=== PATIENT | female | born 1935 | race Caucasian/White ===

== ENCOUNTER 2017-05-08 12:05 | Emergency (ER) | payer MEDICARE, OTHER ==
--- NOTE | 2017-05-08 12:24 | ER Document Report ---
ED Medical Screen (RME) - General Chief Complaint: Chest Pain Stated Complaint: CHEST PAIN Time Seen by Provider: 05/08/17 12:12 Mode of Arrival: Wheelchair Information source: Patient TRAVEL OUTSIDE OF THE [place] IN LAST 30 DAYS: No - HPI Patient complains to provider of: Chest pain Onset: Yesterday Notes: 05/08/17 12:24 Patient is an 82-year-old female who presents to the emergency room complaining of pressure to the midsternal area since yesterday evening, she states she is just not been feeling well, has a history of right shoulder problems and recently received a steroid injection around the , she denies any shortness of breath - Related Data Allergies/Adverse Reactions: meperidine HCl [From Demerol] Allergy (Severe, Verified 05/08/17 12:19) propoxyphene HCl [From Darvon] Allergy (Mild, Verified 05/08/17 12:19) oxycodone HCl [From OxyContin] Allergy (Verified 05/08/17 12:19) Past Medical History - Past Medical History Cardiac Medical History: Reports: Hx Hypercholesterolemia, Hx Hypertension Renal/ Medical History: Denies: Hx Peritoneal Dialysis GI Medical History: Reports: Hx Gastroesophageal Reflux Disease Past Surgical History: Reports: Hx Hysterectomy, Hx Orthopedic Surgery - back surgery, foot surgery - Immunizations Hx Diphtheria, Pertussis, Tetanus Vaccination: Yes Physical Exam - Vital signs Vitals: Temp Pulse Resp BP Pulse Ox 98.8 F 93 18 142/78 H 100 05/08/17 12:17 05/08/17 12:17 05/08/17 12:17 05/08/17 12:17 05/08/17 12:17 Course - Vital Signs Vital signs: Temp Pulse Resp BP Pulse Ox 98.8 F 93 18 142/78 H 100 05/08/17 12:17 05/08/17 12:17 05/08/17 12:17 05/08/17 12:17 05/08/17 12:17
[2017-05-08 12:54] LABS: ABSOLUTE LYMPHOCYTES (AUTO) 1.3 10^3/uL (0.5-4.7); ABSOLUTE MONOCYTES (AUTO) 0.6 10^3/uL (0.1-1.4); ABSOLUTE NEUT (AUTO) 4.7 10^3/uL (1.7-8.2); BASOPHILS % (AUTO) 0.7 % (0-2); EOSINOPHILS % (AUTO) 0.7 % (0-6); HEMATOCRIT 42.2 % (36.0-47.0); HEMOGLOBIN 14.1 g/dL (12.0-15.5); HGB HCT DIFFERENCE 0.1; LYMPHOCYTES % (AUTO) 19.2 % (13-45); MEAN CORPUSCULAR HEMOGLOBIN 27.8 pg (27.0-33.4); MEAN CORPUSCULAR HGB CONC 33.4 g/dL (32.0-36.0); MEAN CORPUSCULAR VOLUME 83 fl (80-97); MONOCYTES % (AUTO) 8.4 % (3-13); RED BLOOD COUNT 5.08 10^6/uL (3.72-5.28); RED CELL DISTRIBUTION WIDTH 15.4 % (11.5-14.0); WHITE BLOOD COUNT 6.6 10^3/uL (4.0-10.5)
--- NOTE | 2017-05-08 13:04 | RADIOLOGY REPORT (SQ) ---
EXAM DESCRIPTION: CHEST PA/LAT COMPLETED DATE/TIME: 05/08/2017 12:51 pm REASON FOR STUDY: cp COMPARISON: 11/18/2015 EXAM PARAMETERS: NUMBER OF VIEWS: two views TECHNIQUE: Digital Frontal and Lateral radiographic views of the chest acquired. RADIATION DOSE: NA LIMITATIONS: none FINDINGS: LUNGS AND PLEURA: There is hyperexpansion of the lungs. There is no pulmonary infiltrate or pleural effusion MEDIASTINUM AND HILAR STRUCTURES: No masses or contour abnormalities. HEART AND VASCULAR STRUCTURES: Heart normal size. No evidence for failure. BONES: No acute findings. HARDWARE: None in the chest. OTHER: No other significant finding. IMPRESSION: Chronic lung changes with no acute cardiopulmonary disease. TECHNICAL DOCUMENTATION: JOB ID: [id number] [employer]- All Rights Reserved
[2017-05-08 13:08] LABS: ALANINE AMINOTRANSFERASE 30 U/L (9-52); ALBUMIN 5.1 g/dL (3.5-5.0); ALKALINE PHOSPHATASE 103 U/L (38-126); ANION GAP 15 (5-19); ASPARTATE AMINO TRANSFERASE 27 U/L (14-36); BILIRUBIN,DIRECT 0.5 mg/dL (0.0-0.4); BILIRUBIN,TOTAL 0.7 mg/dL (0.2-1.3); BLOOD UREA NITROGEN 18 mg/dL (7-20); CALCIUM 10.4 mg/dL (8.4-10.2); CARBON DIOXIDE 29 mmol/L (22-30); CHLORIDE 98 mmol/L (98-107); CREATINE KINASE 59 U/L (30-135); CREATININE RESULT 0.64 mg/dL (0.52-1.25); GLUCOSE 111 mg/dL (75-110); POTASSIUM 3.7 mmol/L (3.6-5.0); SODIUM 141.5 mmol/L (137-145); TOTAL PROTEIN 8.1 g/dL (6.3-8.2)
[2017-05-08 13:23] LABS: CREATINE KINASE MB 0.62 ng/mL (<4.55)
[2017-05-08 13:25] LABS: TROPONIN I < 0.012 ng/mL
[2017-05-08] MEDS ORDERED: LIDOCAINE 5% (700 MG) TRANSDERMAL ADH..PATCH TP ONE (13:53)
--- NOTE | 2017-05-08 14:03 | ER Document Report ---
ED General - General Chief Complaint: Chest Pain Stated Complaint: CHEST PAIN Time Seen by Provider: 05/08/17 12:12 Mode of Arrival: Wheelchair TRAVEL OUTSIDE OF THE [place] IN LAST 30 DAYS: No - HPI Patient complains to provider of: Right shoulder pain Notes: Patient coming in for evaluation of right shoulder pain. Patient states that she was misunderstood front patient had a chest pain day prior to arrival no chest pain today however is mostly coming in for further evaluation of her right shoulder patient states recent injection by her primary care physician was told to come to the ER if pain increased. Patient denies fevers chills nausea vomiting diarrhea patient is in no obvious distress upon my evaluation - Related Data Allergies/Adverse Reactions: meperidine HCl [From Demerol] Allergy (Severe, Verified 05/08/17 12:19) propoxyphene HCl [From Darvon] Allergy (Mild, Verified 05/08/17 12:19) oxycodone HCl [From OxyContin] Allergy (Verified 05/08/17 12:19) Past Medical History - General Information source: Patient - Social History Smoking Status: Unknown if Ever Smoked Family History: Reviewed & Not Pertinent - Past Medical History Cardiac Medical History: Reports: Hx Hypercholesterolemia, Hx Hypertension Renal/ Medical History: Denies: Hx Peritoneal Dialysis GI Medical History: Reports: Hx Gastroesophageal Reflux Disease Past Surgical History: Reports: Hx Hysterectomy, Hx Orthopedic Surgery - back surgery, foot surgery - Immunizations Hx Diphtheria, Pertussis, Tetanus Vaccination: Yes Review of Systems - Review of Systems Constitutional: No symptoms reported EENT: No symptoms reported Cardiovascular: No symptoms reported Respiratory: No symptoms reported Gastrointestinal: No symptoms reported Genitourinary: No symptoms reported Female Genitourinary: No symptoms reported Musculoskeletal: Other - Right shoulder pain Skin: No symptoms reported Hematologic/Lymphatic: No symptoms reported Neurological/Psychological: No symptoms reported -: Yes All other systems reviewed and negative Physical Exam - Vital signs Vitals: Temp Pulse Resp BP Pulse Ox 98.8 F 93 18 142/78 H 100 05/08/17 12:17 05/08/17 12:17 05/08/17 12:17 05/08/17 12:17 05/08/17 12:17 Interpretation: Normal - General General appearance: Appears well, Alert - HEENT Head: Normocephalic, Atraumatic Eyes: Normal Pupils: PERRL - Respiratory Respiratory status: No respiratory distress Chest status: Nontender Breath sounds: Normal Chest palpation: Normal - Cardiovascular Rhythm: Regular Heart sounds: Normal auscultation Murmur: No - Abdominal Inspection: Normal Distension: No distension Bowel sounds: Normal Tenderness: Nontender Organomegaly: No organomegaly - Back Back: Normal, Nontender - Extremities General upper extremity: Normal inspection, Tender - Tenderness to palpation of the right shoulder., Normal color, Normal ROM, Normal temperature General lower extremity: Normal inspection, Nontender, Normal color, Normal ROM , Normal temperature, Normal weight bearing. No: Eflix's sign - Neurological Neuro grossly intact: Yes Cognition: Normal Orientation: AAOx4 Pat Coma Scale Eye Opening: Spontaneous [place] Coma Scale Verbal: Oriented Pat Coma Scale Motor: Obeys Commands Pat Coma Scale Total: 15 Speech: Normal Motor strength normal: LUE, RUE, LLE, RLE Sensory: Normal - Psychological Associated symptoms: Normal affect, Normal mood - Skin Skin Temperature: Warm Skin Moisture: Dry Skin Color: Normal Course - Re-evaluation Re-evalutation: 05/08/17 18:00 Laboratory studies an EKG did not show any signs significant pathology. Examination of the patient shoulder does not reveal any signs of infection. We will place a Lidoderm patch encouraged patient to follow-up with primary care physician for further evaluation. - Vital Signs Vital signs: Temp Pulse Resp BP Pulse Ox 98.8 F 84 16 133/70 H 96 05/08/17 12:17 05/08/17 14:37 05/08/17 14:37 05/08/17 14:37 05/08/17 14:37 - Laboratory Result Diagrams: 05/08/17 12:40 05/08/17 12:40 Laboratory results interpreted by me: 05/08/17 05/08/17 12:40 12:40 RDW 15.4 H Glucose 111 H Calcium 10.4 H Direct Bilirubin 0.5 H Albumin 5.1 H Discharge - Discharge Clinical Impression: Right shoulder pain Qualifiers: Chronicity: unspecified Qualified Code(s): M25.511 - Pain in right shoulder Condition: Stable Disposition: HOME, SELF-CARE Additional Instructions: Your evaluation today did not reveal any signs of acute pathology for your right shoulder pain. He may be having a localized reaction to your recent injection however I see no signs of infection seen no signs of cardiac damage I do not see any signs of other pathology. However recommend she follow-up with your primary care physician. If you do receive good pain relief with the patch provided you may ask your local pharmacist about [id number] lidocaine creams or [id number] lidocaine patches. Referrals: GELACIO SANCHEZ MD [Primary Care Provider] - Follow up as needed
[2017-05-08 14:38] VITALS: BP 133/70
--- NOTE | 2017-05-08 17:24 | EKG REPORT ---
SEVERITY:- NORMAL ECG - SINUS RHYTHM : Confirmed by: Lourdes Valadez 08-May-2017 17:24:10
--- NOTE | 2017-05-09 11:51 | EKG REPORT ---
SEVERITY:- ABNORMAL ECG - SINUS RHYTHM NONSPECIFIC T ABNORMALITIES, LATERAL LEADS : Confirmed by: Lourdes Valadez 09-May-2017 11:50:07
== END 2017-05-08 14:37 | disposition home or self-care (01) ==
LOC: ER 12:05
DX: M25.511 Pain in right shoulder (principal); R07.9 Chest pain, unspecified
CPT/HCPCS: 36415; 71020; 80053; 82550; 82553; 84484; 85025; 93005; 93010; 99284

== ENCOUNTER 2017-10-15 08:40 | Day surgery (SDC) | payer MEDICARE, OTHER ==
[2017-10-15] MEDS ORDERED: NA PHOS,M-B/NA PHOS,DI-BA (ADULT) 133 ML ENEMA PR ONE (08:47)
[2017-10-15] MEDS ORDERED: MIDAZOLAM 2 MG/2 ML INJ ONE ×2 (09:10→09:11)
[2017-10-15] MEDS ORDERED: GLYCOPYRROLATE INJ 0.4 MG/2 ML VIAL ONE (09:10)
[2017-10-15] MEDS ORDERED: ONDANSETRON HCL INJ/PF 4 MG/2 ML SDV ONE (09:10)
[2017-10-15] MEDS ORDERED: NALOXONE HCL INJ/PF 0.4 MG/1 ML SDV ONE (09:10)
[2017-10-15] MEDS ORDERED: GLUCAGON,HUMAN RECOMB 1 MG INJ ONE (09:11)
[2017-10-15] MEDS ORDERED: FLUMAZENIL INJ 0.5 MG/5 ML VIAL ONE (09:11)
[2017-10-15] MEDS ORDERED: EPINEPHRINE INJ 1 MG/10 ML DISP.SYRIN ONE (09:11)
[2017-10-15] MEDS ORDERED: FENTANYL CITRATE INJ/PF 100 MCG/2 ML AMPUL ONE (09:11)
[2017-10-15] MEDS: MIDAZOLAM 2 MG/2 ML INJ ONE ×2 (09:52→10:07)
[2017-10-15] MEDS ORDERED: LIDOCAINE 2% JELLY 5 ML TUBE ONE (10:26)
--- NOTE | 2017-10-15 10:52 | PDOC DISCHARGE SUMMARY ---
Discharge Summary (SDC) - Discharge Final Diagnosis: Rectal pain Rectal bleeding Date of Surgery: 10/15/17 Discharge Date: 10/15/17 Condition: Good Treatment or Instructions: [place] [id number] POST ENDOSCOPY DISCHARGE INSTRUCTIONS 1. Diet: Start clear liquids that a regular diet as tolerated. 2. Resume all preoperative medications. All oral anticoagulants and aspirins can be resumed 24 hours after procedure. 3. If a polypectomy was performed some bleeding per rectum may occur. This should stop within 3 days. If not, please contact the office. 4. If you had a colonoscopy you may experience some bloating and delayed return of normal bowel function for several days, your regular bowel movement pattern should resume within a week. 5. Please contact [facility] at to make an appointment with Dr. Quezada for 1 to 3 weeks following procedure. 6. If you have any questions or concerns regarding your care,treatment plan or follow up, please contact our office. 7. Will discuss with pt. future diagnostic and tx. plan given incomplete colonoscopy Referrals: GELACIO SANCHEZ MD [Primary Care Provider] - Discharge Diet: As Tolerated Discharge Activity: Activity As Tolerated Home Care Assistance: None Needed Report the Following to Your Physician Immediately: Shortness of Breath, Increase in Pain, Fever over 101 Degrees
--- NOTE | 2017-10-15 11:07 | OPERATIVE REPORT E ---
Operative Report NAME: MARK GOODE : 1935 AGE: 82Y DATE OF SURGERY: 10/15/2017 ROOM: PREOPERATIVE DIAGNOSES: 1. RECTAL AND ANAL PAIN. 2. RECTAL BLEEDING. POSTOPERATIVE DIAGNOSIS: No evidence of anorectal pathology; incomplete colonoscopy. OPERATION: Colonoscopy to midtransverse colon with further documentation. SURGEON: NOLAN BARTON M.D. ANESTHESIA: IV sedation. COMPLICATIONS: None. ESTIMATED BLOOD LOSS: None. DRAINS: None. TISSUE REMOVED OR ALTERED: None. SUMMARY OF PROCEDURE: Patient brought to the preop holding area of the endoscopy suite of [facility] where IV sedation was induced. Patient was placed in the left lateral decubitus position. Of note: Patient has multiple allergies and uses a fentanyl patch which he has on. Appropriate level of conscious sedation was safely induced. Surgical plan and surgical time out were conducted. A rectal examination was performed. This was very uncomfortable for the patient. Other than external collapsed hemorrhoids, there was no visible or palpable anorectal pathology. The flexible adult colonoscope was advanced through the rectosigmoid area, left colon, and up through the redundant transverse colon. Unfortunately due to pain out of proportion to resistance encountered during colonoscopy, the procedure was aborted with the visualization and manipulation of the scope to the transverse colon only. This was a redundant transverse colon. Scope was withdrawn from the midtransverse colon, all the way back through to the anorectal canal. No pathology identified. There was no evidence of *------*, tumor, polyp or stricture. The procedure was concluded. She tolerated the procedure reasonably well at this point without complication. Again, the procedure was aborted with the scope in the transverse colon due to patient's intolerance to procedure despite adequate sedation and adequate bowel prep. The recommendations will be to check CBC, check stool for occult blood, and make recommendations thereafter. DICTATING PHYSICIAN: NOLAN BARTON M.D. [id number] PHY#: [id number] ID: [id number] JOB#: [id number] ACCT: [id number] cc:NOLAN BARTON M.D. >
[2017-10-15 11:45] LABS: ABSOLUTE LYMPHOCYTES (AUTO) 0.5 10^3/uL (0.5-4.7); ABSOLUTE MONOCYTES (AUTO) 0.3 10^3/uL (0.1-1.4); ABSOLUTE NEUT (AUTO) 3.6 10^3/uL (1.7-8.2); BASOPHILS % (AUTO) 0.4 % (0-2); EOSINOPHILS % (AUTO) 0.1 % (0-6); HEMATOCRIT 35.1 % (36.0-47.0); HEMOGLOBIN 12.1 g/dL (12.0-15.5); LYMPHOCYTES % (AUTO) 11.8 % (13-45); MEAN CORPUSCULAR HEMOGLOBIN 28.7 pg (27.0-33.4); MEAN CORPUSCULAR HGB CONC 34.3 g/dL (32.0-36.0); MEAN CORPUSCULAR VOLUME 84 fl (80-97); MONOCYTES % (AUTO) 7.5 % (3-13); PLATELET COUNT 234 10^3/uL (150-450); RED CELL DISTRIBUTION WIDTH 14.4 % (11.5-14.0); SEGMENTED NEUTROPHILS % (AUTO) 80.2 % (42-78); TOTAL CELLS COUNTED % (AUTO) 100 %; WHITE BLOOD COUNT 4.5 10^3/uL (4.0-10.5)
[2017-10-15 12:16] VITALS: BP 127/58
== END 2017-10-15 11:55 | disposition home or self-care (01) ==
LOC: END 08:40
PROVIDERS: ATTEND Surgery
PROC: 0DJD8ZZ Inspection of Lower Intestinal Tract, Via Natural or Artificial Opening Endoscopic (ICD-10-PCS; principal; 2017-10-15 09:15)
DX: K62.5 Hemorrhage of anus and rectum (principal); K62.89 Other specified diseases of anus and rectum; K64.4 Residual hemorrhoidal skin tags; I10 Essential (primary) hypertension; K21.9 Gastro-esophageal reflux disease without esophagitis; Z86.73 Personal history of transient ischemic attack (TIA), and cerebral infarction without residual deficits; Z85.828 Personal history of other malignant neoplasm of skin; Z88.8 Allergy status to other drugs, medicaments and biological substances; Z79.899 Other long term (current) drug therapy
CPT/HCPCS: 45378; 36415; 85025; J2250; J3010; A9270; J0171; J1610; J2310; J2405; J3490

== ENCOUNTER 2018-01-14 10:35 | Emergency (ER) | payer MEDICARE, OTHER ==
--- NOTE | 2018-01-14 11:05 | ER Document Report ---
ED Medical Screen (RME) - General Chief Complaint: Fall Stated Complaint: FALL/ HEAD AND SHOULDER PAIN Time Seen by Provider: 01/14/18 10:54 Notes: RAPID MEDICAL EVALUATION DISCLOSURE I have seen this patient as part of a Rapid Medical Evaluation and, if applicable, placed any initially appropriate orders. The patient will be seen and fully evaluated, including a full history and physical exam, by a provider ( in Main ED or Fast Track) when a room becomes available. 83-year-old female here status post fall 2 days ago while she was taking a shower. She does not think she hit her head but does not know for sure ( however does not have a headache). Since then she has been having body aches all over but specifically hurts to breathe and when she tries to breathe she has pain that radiates from the front of her left chest straight through to her back. The pain is minimal when she is breathing shallow. She has tried Tylenol for the pain and also wears a fentanyl patch. She denies any numbness tingling weakness headache vision change. She does not take blood thinners, per her report. Does not remember when she last received her tetanus booster EXAM Superior midline cervical spine TTP without step-off Mild mid thoracic paraspinal muscle TTP, no midline TTP Midline lumbar spine TTP Moderate left mid chest TTP, approximately ribs 3-6 Symmetric breath sounds and rales bilaterally Mild TTP left tib-fib Mild TTP right lateral foot at metatarsal Alert and oriented NOTE Boostrix not ordered since patient states she is allergic to tetanus booster TRAVEL OUTSIDE OF THE [place] IN LAST 30 DAYS: No - Related Data Allergies/Adverse Reactions: meperidine HCl [From Demerol] Allergy (Severe, Verified 10/15/17 09:03) VOMITING propoxyphene HCl [From Darvon] Allergy (Mild, Verified 10/15/17 09:03) VOMITING oxycodone HCl [From OxyContin] Allergy (Verified 10/15/17 09:03) VOMITING Past Medical History - Social History Chew tobacco use (# tins/day): No Frequency of alcohol use: None Drug Abuse: None - Past Medical History Cardiac Medical History: Reports: Hx Hypercholesterolemia, Hx Hypertension Denies: Hx Coronary Artery Disease, Hx Heart Attack Pulmonary Medical History: Denies: Hx Asthma, Hx Bronchitis, Hx COPD, Hx Pneumonia Neurological Medical History: Denies: Hx Cerebrovascular Accident, Hx Seizures Renal/ Medical History: Denies: Hx Peritoneal Dialysis GI Medical History: Reports: Hx Gastroesophageal Reflux Disease Musculoskeltal Medical History: Reports Hx Arthritis Past Surgical History: Reports: Hx Orthopedic Surgery - back surgery, foot surgery. Denies: Hx Hysterectomy - Immunizations Hx Diphtheria, Pertussis, Tetanus Vaccination: Yes Influenza Administration Date for 05/2017 - 10/2017 Season: 06/24/17 Physical Exam - Vital signs Vitals: Temp Pulse Resp BP Pulse Ox 98.8 F 64 16 124/54 L 97 01/14/18 10:47 01/14/18 10:47 01/14/18 10:47 01/14/18 10:47 01/14/18 10:47 Course - Vital Signs Vital signs: Temp Pulse Resp BP Pulse Ox 98.8 F 64 16 124/54 L 97 01/14/18 10:47 01/14/18 10:47 01/14/18 10:47 01/14/18 10:47 01/14/18 10:47
--- NOTE | 2018-01-14 11:06 | ER Document Report ---
ED General - General Chief Complaint: Fall Stated Complaint: FALL/ HEAD AND SHOULDER PAIN Time Seen by Provider: 01/14/18 10:54 Mode of Arrival: Ambulatory Information source: Patient TRAVEL OUTSIDE OF THE [place] IN LAST 30 DAYS: No - HPI Notes: 83-year-old female presents to the emergency room for complaints of body pain due to falling while she was in the shower approximately 2 days ago. Patient is unsure if she hit her head or not. Reports body aches all over, reports pain with taking a deep breath in on her back near her ribs. Denies any confusion since onset, change in level of consciousness. Patient takes Tylenol and wears a fentanyl patch for her chronic back pain. Patient lives with her . Pain is 6 out of 10, throbbing achy. Patient does have a patch on now. Denies fevers, chills, chest pain,palpitations, shortness of breath, dyspnea, nausea, vomiting, diarrhea, abdominal pain, hematuria,blurred vision, double vision, loss of vision, speech changes, LH, dizziness, syncope, headaches , wheezing, ST, URI, neck pain, weakness, bowel or bladder dysfunction, saddle anesthesia, numbness or tingling in bilateral upper or lower extremities equally , muscle paralysis, weakness in bilateral upper or lower extremities equally or rash. Denies IV drug use. - Related Data Allergies/Adverse Reactions: meperidine HCl [From Demerol] Allergy (Severe, Verified 10/15/17 09:03) VOMITING propoxyphene HCl [From Darvon] Allergy (Mild, Verified 10/15/17 09:03) VOMITING oxycodone HCl [From OxyContin] Allergy (Verified 10/15/17 09:03) VOMITING Home Medications: omperozole, nifedppine, fentanyl patch, gabapentin, lorazepam , venlafaxine, restasis, b-12, D-3, biotin, tylenol, caltrate Past Medical History - General Information source: Patient - Social History Smoking Status: Never Smoker Chew tobacco use (# tins/day): No Frequency of alcohol use: None Drug Abuse: None Family History: Reviewed & Not Pertinent Patient has suicidal ideation: No Patient has homicidal ideation: No - Past Medical History Cardiac Medical History: Reports: Hx Hypercholesterolemia, Hx Hypertension Denies: Hx Coronary Artery Disease, Hx Heart Attack Pulmonary Medical History: Denies: Hx Asthma, Hx Bronchitis, Hx COPD, Hx Pneumonia Neurological Medical History: Denies: Hx Cerebrovascular Accident, Hx Seizures Renal/ Medical History: Denies: Hx Peritoneal Dialysis GI Medical History: Reports: Hx Gastroesophageal Reflux Disease Musculoskeltal Medical History: Reports Hx Arthritis Past Surgical History: Reports: Hx Orthopedic Surgery - back surgery, foot surgery. Denies: Hx Hysterectomy - Immunizations Hx Diphtheria, Pertussis, Tetanus Vaccination: Yes Hx Pneumococcal Vaccination: 08/24/14 Review of Systems - Review of Systems Constitutional: No symptoms reported EENT: No symptoms reported Cardiovascular: No symptoms reported Respiratory: No symptoms reported Gastrointestinal: No symptoms reported Genitourinary: No symptoms reported Female Genitourinary: No symptoms reported Musculoskeletal: See HPI Skin: No symptoms reported Hematologic/Lymphatic: No symptoms reported Neurological/Psychological: See HPI Physical Exam - Vital signs Vitals: Temp Pulse Resp BP Pulse Ox 98.8 F 64 16 124/54 L 97 01/14/18 10:47 01/14/18 10:47 01/14/18 10:47 01/14/18 10:47 01/14/18 10:47 - Notes Notes: PHYSICAL EXAMINATION: GENERAL: chronically ill appearing, well-nourished and in no acute distress. HEAD: Atraumatic, normocephalic. EYES: Pupils equal round and reactive to light, extraocular movements intact, conjunctiva are normal. ENT: Nares patent, oropharynx clear without exudates. Moist mucous membranes. NECK: Normal range of motion, supple without lymphadenopathy. full APROM of cervical spine, noted cervical spinal tenderness on palpation from C4-C5. negative spurlings test. Senior Restaurant Manager + 2 bilaterally and equally. Dtr +2 bilaterally and equally in BUE. Perrla, full eomi. Face symmetrical. No rashes observed. Point tenderness to right paraspinal muscles near C6. No lymphadenopathy. Full APROM with shoulders. TM intact bilaterally. No meningismus. No noted lymphadenopathy. LUNGS: Breath sounds clear to auscultation bilaterally and equal. No wheezes rales or rhonchi. Intercostal bilateral rib pain between 6-9 bilaterally. No step-off or ecchymosis noted. HEART: Regular rate and rhythm without murmurs ABDOMEN: Soft, nontender, nondistended abdomen. No guarding, no rebound. No masses appreciated. Female : deferred Musculoskeletal: Normal range of motion, no pitting or edema. No cyanosis. Pain with flexion and extension at 50 degrees, positive straight leg test right. Normal hip rotation. DTR +2 in BLE equally. Strength 5 out of 5 both distally and proximally to bilateral lower extremities normal motor and sensory function in BLE equally. Distal pulses + 2 BLE equally. Noted paraspinal tenderness as well as spinal tenderness from C4- L3. No CVA tenderness bilaterally. Femoral pulses + 2 bilaterally and equally. No abrasions, scars, lacerations, ecchymosis of any recent trauma. normal gait. NEUROLOGICAL: Cranial nerves grossly intact. Normal speech, normal gait. Normal sensory, motor exams. PERRLA, EOMI. Full motor and sensory function throughout. Senior Restaurant Manager + 2 equal bilaterally in BUE. Tongue midline. No pronator drift. No ataxia. Neck with APROM. Raises eyebrows. Strength is 5 out of 5 in bilateral upper and lower extremities equally.Speaks in full sentences. No weakness on one side. Romberg gait steady able to walk straight line. Able to recall 5 objects. left foot with STS and tenderness on 2nd and 3rd metatarsal bones with palpation. Unable to palpate a step-off. No open lesions. squeeze test negative. dtr +2 BLE. Limited APROM. distal pulses + 2 in BUE. full motor and sensory function. No vascular compromise. Ankle exam within normal limits. No noted lacerations, lesions, ulcers or break in the skin. Tenderness left farmer, no open wounds or drainage. PSYCH: Normal mood, normal affect. SKIN: Warm, Dry, normal turgor, no rashes or lesions noted. Course - Re-evaluation Re-evalutation: 01/14/18 14:17 83-year-old female who is afebrile, vitals stable and in no distress presents for evaluation after falling in the shower. Reports head, neck, thoracic, lumbar., Left foot and right farmer pain. Patient is unsure if she lost consciousness. Has not had any nausea or vomiting since occurrence. Denies any focal neurological deficits. Patient has been controlling her pain with wearing a fentanyl patch, states she does not like to take any oral pain medication that is control because she needs to stay alert due to being on a primary caregiver for her . her CT cervical spine, thoracic spine, lumbar spine all unremarkable for any acute fractures, noted DJD. No tachypnea or hypoxemia at time of arrival. No evidence of acute fracture, pneumothorax or pulmonary contusion. No indication for further imaging of the cervical spine this point. CT head negative for any acute findings stroke, noted chronic ischemic changes. Rib x-ray negative for any acute fractures. Left foot and right farmer unremarkable. CBC and CMP unremarkable, coags normal. Discussed with patient who take Flexeril at night as this may induce drowsiness , do not drive, drink alcohol or operate any machinery while taking medication. discussed concussion protocol such as being woken up every hour by someone you live with, be asked orientation questions and to call 911 if any neurological changes occur such as speech changes, weakness on one side, unable to orient, nausea, vomiting, or severe headache, etc. At this time will discharge with return precautions and follow-up recommendations. Verbal discharge instructions given at the bedside and opportunity for questions given. Medication warnings reviewed. Patient is in agreement with this plan and has verbalized understanding of return precautions and the need for primary care follow-up in the next 24-72 hours. After performing a Medical Screening Examination, I estimate there is LOW risk for INTRACRANIAL HEMORRHAGE, UNSTABLE SPINE FRACTURE, CENTRAL CORD SYNDROME, CAUDA EQUINA, THORACIC AORTIC DISSECTION, PNEUMOTHORAX, PERFORATED BOWEL, RUPTURED ABDOMINAL AORTIC ANEURYSM, ACUTE TENDON RUPTURE, COMPARTMENT SYNDROME, or OPEN FRACTURE, thus I consider the discharge disposition reasonable. Also, there is no evidence or peritonitis, sepsis, or toxicity. I have reevaluated this patient multiple times and no significant life threatening changes are noted. The patient and I have discussed the diagnosis and risks, and we agree with discharging home to follow-up with their primary doctor with the understanding that symptoms and presentations can change. We also discussed returning to the Emergency Department immediately if new or worsening symptoms occur. We have discussed the symptoms which are most concerning (e.g., bloody stool, fever, changing or worsening pain, vomiting) that necessitate immediate return. - Vital Signs Vital signs: Temp Pulse Resp BP Pulse Ox 98.0 F 76 16 138/53 H 94 01/14/18 14:49 01/14/18 14:49 01/14/18 14:49 01/14/18 14:49 01/14/18 14:49 - Laboratory Result Diagrams: 01/14/18 11:59 05/24/18 11:59 Laboratory results interpreted by me: 01/14/18 01/14/18 01/14/18 11:59 11:59 12:55 RDW 14.6 H Chloride 97 L Carbon Dioxide 34 H BUN 23 H Calcium 10.7 H Urine Urobilinogen 2.0 H Ur Leukocyte Esterase TRACE H Urine Ascorbic Acid 40 H Discharge - Discharge Clinical Impression: Closed head injury, Acute neck sprain, Rib contusion, Injury of left farmer, Right foot sprain Condition: Good Disposition: HOME, SELF-CARE Instructions: Concussion ([facility]), Exercises for the Foot Muscles ([facility]), Head Injury Precautions ([facility]), Ice Packs ([facility]), Low Back Pain ([facility]), Neck Injury ( Cervical Strain) ([facility]), Post-Concussion Syndrome ([facility]), Rib Contusion ([facility]), Soft Cervical Collar ([facility]), Splint Precautions ([facility]), Sprain ([facility]), Stretching Exercises for the Back ([facility]) Additional Instructions: Your chest wall pain is due to bruising of your ribs. This pain can last for up to 6 weeks. It is very important that you continue to take purposeful deep breaths. For your pain: Continue to take ibuprofen 600 mg every 6 hours or Tylenol 1000 mg every 6 hours. Apply local lidocaine to the area per bottle instructions. There is a product sold [id number] called "Aspercreme with lidocaine" that you can use for this purpose. Please follow-up with her primary care doctor in the next 2-3 days. Return to the emergency department immediately if you develop worsening shortness of breath, increased pain, begin coughing blood, pass out, or have any other symptoms that are worrisome to you. discussed concussion protocol such as being woken up every hour by someone you live with, be asked orientation questions and to call 911 if any neurological changes occur such as speech changes, weakness on one side, unable to orient, nausea, vomiting, or severe headache, etc. pt verbalized understanding of this care and agreed to plan of care. discussed worrisome symptoms as well as reasons for return over what time frame. patient states understanding and is agreeable with plan. You have been seen in the Emergency Department (ED) today for back pain. Your workup and exam have not shown any acute abnormalities and you are likely suffering from muscle strain or possible problems with your discs, but there is no treatment that will fix your symptoms at this time. Please take the naproxen that has been prescribed as directed. You should also purchase a local lidocaine cream such as "aspercreme with lidocaine" and use per bottle instructions to the affected area. Apply heat to the area as often as you are able. Continue to keep active and avoid prolonged periods of bed rest. Please follow up with your doctor as soon as possible regarding today's ED visit and your back pain. Return to the ED for worsening back pain, fever, weakness or numbness of either leg, or if you develop either (1) an inability to urinate or have bowel movements, or (2) loss of your ability to control your bathroom functions (if you start having "accidents"), or if you develop other new symptoms that concern you.concern you. Follow-up with primary care provider tomorrow as well as orthopedic doctor within the next 3 days. Return to the ER symptoms become worse. Return immediately for any new or worsening symptoms. Follow up with primary care provider, call tomorrow to make followup appointment. Prescriptions: Cyclobenzaprine HCl [Flexeril 5 mg Tablet] 5 mg PO BIDP PRN #8 tablet PRN Reason: Referrals: NOLAN BARTON MD [Primary Care Provider] - Follow up as needed JEFFRY GOMEZ MD [ACTIVE STAFF] - Follow up tomorrow
--- NOTE | 2018-01-14 11:57 | RADIOLOGY REPORT (SQ) ---
EXAM DESCRIPTION: FOOT RIGHT COMPLETE COMPLETED DATE/TIME: 01/14/2018 11:44 am REASON FOR STUDY: s/p fall; TTP R lateral foot pain in the right heel, 4th and 5th metatarsals COMPARISON: None. NUMBER OF VIEWS: Three views. TECHNIQUE: AP, lateral and oblique radiographic images acquired of the right foot. LIMITATIONS: None. FINDINGS: MINERALIZATION: Normal. BONES: No acute fracture or dislocation. Old healed 1st metatarsal osteotomy. Small plantar calcane al spur. JOINTS: Joint space narrowing and bony spurring 1st metatarsophalangeal joint, and great toe interpha langeal joint. SOFT TISSUES: No soft tissue swelling. No foreign body. OTHER: No other significant finding. IMPRESSION: No acute fracture TECHNICAL DOCUMENTATION: JOB ID: [id number] [employer]- All Rights Reserved Reading location - IP/workstation name: [email or web address]
--- NOTE | 2018-01-14 11:58 | RADIOLOGY REPORT (SQ) ---
EXAM DESCRIPTION: TIBIA FIBULA LEFT COMPLETED DATE/TIME: 01/14/2018 11:44 am REASON FOR STUDY: s/p fall, now hurting COMPARISON: None. NUMBER OF VIEWS: Two views. TECHNIQUE: Two radiographic images acquired of the left tibia and fibula to include the knee and ank le in at least one projection. LIMITATIONS: None. FINDINGS: MINERALIZATION: Normal. BONES: No acute fracture or dislocation. No worrisome bone lesions. SOFT TISSUES: No obvious swelling or foreign body. OTHER: No other significant finding. IMPRESSION: NEGATIVE STUDY OF THE LEFT TIBIA AND FIBULA. NO RADIOGRAPHIC EVIDENCE OF ACUTE INJURY. TECHNICAL DOCUMENTATION: JOB ID: [id number] [employer]- All Rights Reserved Reading location - IP/workstation name: [email or web address]
--- NOTE | 2018-01-14 12:00 | RADIOLOGY REPORT (SQ) ---
EXAM DESCRIPTION: L SPINE WHOLE COMPLETED DATE/TIME: 01/14/2018 11:44 am REASON FOR STUDY: s/p fall, now hurting COMPARISON: None. NUMBER OF VIEWS: Five views including obliques. TECHNIQUE: AP, lateral, oblique, and sacral radiographic images acquired of the lumbar spine. LIMITATIONS: None. FINDINGS: MINERALIZATION: Osteopenia. SEGMENTATION: Normal. No transitional anatomy. ALIGNMENT: Rotatory dextroscoliosis centered at L2. VERTEBRAE: There is mild loss of height of the L4 vertebral body. This does not appear to be acute. DISCS: All the lumbar disc spaces are narrowed. Marginal osteophytes are present. POSTERIOR ELEMENTS: Hypertrophic facet changes are present from L3-S1. HARDWARE: None in the spine. PARASPINAL SOFT TISSUES: Normal. PELVIS: Intact as visualized. No fractures or worrisome bone lesions. SI joints intact. OTHER: No other significant finding. IMPRESSION: Scoliosis, spondylosis, degenerative disc disease, and facet arthropathy. Mild chronic loss of height of the L4 vertebral body. TECHNICAL DOCUMENTATION: JOB ID: [id number] [employer]- All Rights Reserved Reading location - IP/workstation name: [email or web address]
--- NOTE | 2018-01-14 12:02 | RADIOLOGY REPORT (SQ) ---
EXAM DESCRIPTION: RIBS LEFT W/O PA CHEST COMPLETED DATE/TIME: 01/14/2018 11:44 am REASON FOR STUDY: s/p fall, now painful breathing; fx or ptx? COMPARISON: None. NUMBER OF VIEWS: Three views. TECHNIQUE: Images acquired of the left ribs in the area of focal concern. LIMITATIONS: None. FINDINGS: RIBS: No acute displaced fracture. No worrisome bone lesions. LUNGS: Limited exam. No obvious pneumothorax. No pleural effusion. OTHER: No other significant finding. IMPRESSION: NO ACUTE DISPLACED RIB FRACTURE. COMMENT: SITE OF TRAUMA/COMPLAINT MARKED/STAMP COMPLETED: Yes TECHNICAL DOCUMENTATION: JOB ID: [id number] [employer]- All Rights Reserved Reading location - IP/workstation name: [email or web address]
--- NOTE | 2018-01-14 12:04 | RADIOLOGY REPORT (SQ) ---
EXAM DESCRIPTION: T SPINE AP/LAT COMPLETED DATE/TIME: 01/14/2018 11:44 am REASON FOR STUDY: s/p fall, now hurting COMPARISON: None. NUMBER OF VIEWS: Two views. TECHNIQUE: AP and lateral radiographic images acquired of the thoracic spine. LIMITATIONS: None. FINDINGS: MINERALIZATION: Osteopenia. ALIGNMENT: Mild scoliosis. VERTEBRAE: No fracture or bone lesion. Maintained height, normal segmentation. DISCS: Marginal osteophytes are present in the lower thoracic spine. Disc space narrowing is present at T10-11 and T11-12. HARDWARE: None in the spine. MEDIASTINUM AND SOFT TISSUES: Normal heart size and aortic contour. No soft tissue abnormality. VISUALIZED LUNG CHAVEZ: Clear. OTHER: No other significant finding. IMPRESSION: Scoliosis, degenerative disc disease, and spondylosis. TECHNICAL DOCUMENTATION: JOB ID: [id number] [employer]- All Rights Reserved Reading location - IP/workstation name: [email or web address]
--- NOTE | 2018-01-14 12:07 | RADIOLOGY REPORT (SQ) ---
EXAM DESCRIPTION: CT HEAD WITHOUT COMPLETED DATE/TIME: 01/14/2018 11:52 am REASON FOR STUDY: s/p fall, now hurting COMPARISON: 08/09/2016 TECHNIQUE: Axial images acquired through the brain without intravenous contrast. Images reviewed wi th bone, brain and subdural windows. Additional sagittal and coronal reconstructions were generated. Images stored on PACS. All CT scanners at this facility use dose modulation, iterative reconstruction, and/or weight based d osing when appropriate to reduce radiation dose to as low as reasonably achievable (ALARA). [facility]: Dose Right [facility]: CareDose [facility]: Dose Right [facility]: Teradose 4D [facility]: SeeWhy RADIATION DOSE: CT Rad equipment meets quality standard of care and radiation dose reduction techniq ues were employed. CTDIvol: 53.2 mGy. DLP: 1017 mGy-cm. mGy. LIMITATIONS: None. FINDINGS: VENTRICLES: Normal size and contour. CEREBRUM: No masses. No hemorrhage. No midline shift. No evidence for acute infarction. Few small scattered areas of low density in the white matter most likely chronic small vessel ischemic changes. CEREBELLUM: No masses. No hemorrhage. No alteration of density. No evidence for acute infarction. EXTRAAXIAL SPACES: No fluid collections. No masses. ORBITS AND GLOBE: No intra- or extraconal masses. Normal contour of globe without masses. CALVARIUM: No fracture. PARANASAL SINUSES: No fluid or mucosal thickening. SOFT TISSUES: No mass or hematoma. OTHER: No other significant finding. IMPRESSION: MILD CHRONIC MICROVASCULAR ISCHEMIA. NO ACUTE IMAGING FINDINGS IN THE BRAIN. EVIDENCE OF ACUTE STROKE: NO. COMMENT: Quality ID # 436: Final reports with documentation of one or more dose reduction techniques (e.g., Automated exposure control, adjustment of the mA and/or kV according to patient size, use of iterative reconstruction technique) TECHNICAL DOCUMENTATION: JOB ID: [id number] [employer]- All Rights Reserved Reading location - IP/workstation name: [email or web address]
--- NOTE | 2018-01-14 12:11 | RADIOLOGY REPORT (SQ) ---
EXAM DESCRIPTION: CT CERVICAL SPINE WITHOUT COMPLETED DATE/TIME: 01/14/2018 11:52 am REASON FOR STUDY: s/p fall, now hurting COMPARISON: None. TECHNIQUE: Axial images acquired through the cervical spine without intravenous contrast. Images re viewed with lung, soft tissue and bone windows. Reconstructed coronal and sagittal MPR images review ed. Images stored on PACS. All CT scanners at this facility use dose modulation, iterative reconstruction, and/or weight based d osing when appropriate to reduce radiation dose to as low as reasonably achievable (ALARA). [facility]: Dose Right [facility]: CareDose [facility]: Dose Right [facility]: Teradose 4D [facility]: Smart Zounds RADIATION DOSE: CT Rad equipment meets quality standard of care and radiation dose reduction techniq ues were employed. CTDIvol: 7.9 mGy. DLP: 170 mGy-cm. mGy. LIMITATIONS: None. FINDINGS: ALIGNMENT: Mild scoliosis. MINERALIZATION: Osteopenia. VERTEBRAL BODIES: No fractures or dislocation. DISCS: Disc spaces are narrowed from C3 to sit 7. Marginal osteophytes are present. FACETS, LATERAL MASSES, POSTERIOR ELEMENTS: Hypertrophic facet changes are present in the mid cervica l spine on the left more than right. HARDWARE: None in the spine. VISUALIZED RIBS: No fractures. LUNG APICES AND SOFT TISSUES: No significant or acute findings. OTHER: No other significant finding. IMPRESSION: Mild scoliosis. Degenerative disc disease and spondylosis. Facet arthropathy. TECHNICAL DOCUMENTATION: JOB ID: [id number] Quality ID # [id number]: Final reports with documentation of one or more dose reduction techniques (e.g., Au tomated exposure control, adjustment of the mA and/or kV according to patient size, use of iterative reconstruction technique) 2010 [employer]- All Rights Reserved Reading location - IP/workstation name: [email or web address]
[2018-01-14 12:20] LABS: INTERNATIONAL RATION (INR) 0.96; PARTIAL THROMBOPLASTIN TIME 27.2 SEC (23.5-35.8); PROTHROMBIN TIME 13.3 SEC (11.4-15.4)
[2018-01-14 12:24] LABS: ABSOLUTE EOSINOPHILS # (AUTO) 0.1 10^3/uL (0.0-0.6); ABSOLUTE LYMPHOCYTES (AUTO) 1.2 10^3/uL (0.5-4.7); ABSOLUTE MONOCYTES (AUTO) 0.6 10^3/uL (0.1-1.4); ABSOLUTE NEUT (AUTO) 4.7 10^3/uL (1.7-8.2); BASOPHILS % (AUTO) 0.4 % (0-2); HEMATOCRIT 40.4 % (36.0-47.0); HEMOGLOBIN 13.3 g/dL (12.0-15.5); LYMPHOCYTES % (AUTO) 18.5 % (13-45); MEAN CORPUSCULAR HGB CONC 32.9 g/dL (32.0-36.0); MEAN CORPUSCULAR VOLUME 85 fl (80-97); MONOCYTES % (AUTO) 8.6 % (3-13); PLATELET COUNT 244 10^3/uL (150-450); RED BLOOD COUNT 4.75 10^6/uL (3.72-5.28); RED CELL DISTRIBUTION WIDTH 14.6 % (11.5-14.0); SEGMENTED NEUTROPHILS % (AUTO) 71.5 % (42-78); TOTAL CELLS COUNTED % (AUTO) 100 %; WHITE BLOOD COUNT 6.6 10^3/uL (4.0-10.5)
[2018-01-14 12:59] LABS: ALANINE AMINOTRANSFERASE 25 U/L (9-52); ALBUMIN 4.7 g/dL (3.5-5.0); ALKALINE PHOSPHATASE 73 U/L (38-126); ANION GAP 13 (5-19); ASPARTATE AMINO TRANSFERASE 26 U/L (14-36); BILIRUBIN,DIRECT 0.3 mg/dL (0.0-0.4); BILIRUBIN,TOTAL 0.3 mg/dL (0.2-1.3); BLOOD UREA NITROGEN 23 mg/dL (7-20); CALCIUM 10.7 mg/dL (8.4-10.2); CARBON DIOXIDE 34 mmol/L (22-30); CHLORIDE 97 mmol/L (98-107); GLUCOSE 90 mg/dL (75-110); POTASSIUM 4.3 mmol/L (3.6-5.0); SODIUM 143.7 mmol/L (137-145); TOTAL PROTEIN 7.5 g/dL (6.3-8.2)
[2018-01-14 13:29] LABS: APPEARANCE,URINE CLEAR; BILIRUBIN,URINE NEGATIVE (NEGATIVE); COLOR,URINE YELLOW; GLUCOSE, URINE NEGATIVE (NEGATIVE); KETONES,URINE NEGATIVE (NEGATIVE); LEUKOCYTE ESTERASE,URINE TRACE (NEGATIVE); NITRITE,URINE NEGATIVE (NEGATIVE); PROTEIN,URINE NEGATIVE (NEGATIVE)
[2018-01-14 15:12] VITALS: BP 138/53
== END 2018-01-14 15:12 | disposition home or self-care (01) ==
LOC: ER 10:35
DX: S13.9XXA Sprain of joints and ligaments of unspecified parts of neck, initial encounter (principal); S93.601A Unspecified sprain of right foot, initial encounter; S20.20XA Contusion of thorax, unspecified, initial encounter; S89.92XA Unspecified injury of left lower leg, initial encounter; S09.90XA Unspecified injury of head, initial encounter; R07.1 Chest pain on breathing; W18.2XXA Fall in (into) shower or empty bathtub, initial encounter; M79.661 Pain in right lower leg; M79.672 Pain in left foot; M54.5 Low back pain; M54.6 Pain in thoracic spine; G89.29 Other chronic pain; I10 Essential (primary) hypertension; Z79.891 Long term (current) use of opiate analgesic; Z79.899 Other long term (current) drug therapy; K21.9 Gastro-esophageal reflux disease without esophagitis; Z88.5 Allergy status to narcotic agent; R51 Headache
CPT/HCPCS: 99284; 36415; 87086; 85025; 85610; 85730; 80053; 81001; 73630; 72110; 71100; 72070; 73590; 70450; 72125; L0120

== ENCOUNTER 2019-01-16 21:09 | Observation (INO) | payer MEDICARE, OTHER ==
[2019-01-16] MEDS ORDERED: ASPIRIN 81 MG TABLET, CHEWABLE PO ONE (21:46)
[2019-01-16 21:55] LABS: ABSOLUTE BASOPHILS # (AUTO) 0.1 10^3/uL (0.0-0.2); ABSOLUTE EOSINOPHILS # (AUTO) 0.4 10^3/uL (0.0-0.6); ABSOLUTE LYMPHOCYTES (AUTO) 1.5 10^3/uL (0.5-4.7); ABSOLUTE MONOCYTES (AUTO) 0.7 10^3/uL (0.1-1.4); ABSOLUTE NEUT (AUTO) 4.7 10^3/uL (1.7-8.2); BASOPHILS % (AUTO) 0.7 % (0-2); EOSINOPHILS % (AUTO) 5.4 % (0-6); HEMATOCRIT 36.5 % (36.0-47.0); HEMOGLOBIN 11.6 g/dL (12.0-15.5); LYMPHOCYTES % (AUTO) 20.1 % (13-45); MEAN CORPUSCULAR HEMOGLOBIN 26.9 pg (27.0-33.4); MEAN CORPUSCULAR HGB CONC 31.6 g/dL (32.0-36.0); MEAN CORPUSCULAR VOLUME 85 fl (80-97); PLATELET COUNT 222 10^3/uL (150-450); RED BLOOD COUNT 4.29 10^6/uL (3.72-5.28); RED CELL DISTRIBUTION WIDTH 15.2 % (11.5-14.0); SEGMENTED NEUTROPHILS % (AUTO) 63.8 % (42-78); TOTAL CELLS COUNTED % (AUTO) 100 %; WHITE BLOOD COUNT 7.3 10^3/uL (4.0-10.5)
--- NOTE | 2019-01-16 22:01 | ER Document Report ---
ED General - General Chief Complaint: Chest Pain Stated Complaint: CHEST PAIN Time Seen by Provider: 01/16/19 21:59 Primary Care Provider: NOLAN BARTON MD [ACTIVE STAFF] - Follow up as needed Notes: Patient is a 84-year-old female presents with complaint of chest pain. Chest pain is substernal and radiates mainly into the left arm. She says sometimes will radiate into the right arm as well. Is been ongoing since this afternoon. No fevers. No difficulty breathing. Says it is worse with taking a deep earnestine ath. She denies any recent trauma or injuries. No history of PE or DVT. No history of coronary disease. She says that she does have previous history of falls but has not fallen or had any trauma and several months. No other complaints at this time. She says she is never had this pain before. She does have chronic back pain for which she wears a fentanyl patch but says she never has pain like she does now on her chest. TRAVEL OUTSIDE OF THE [place] IN LAST 30 DAYS: No - Related Data Allergies/Adverse Reactions: meperidine HCl [From Demerol] Allergy (Severe, Verified 10/15/17 09:03) VOMITING propoxyphene HCl [From Darvon] Allergy (Mild, Verified 10/15/17 09:03) VOMITING oxycodone HCl [From OxyContin] Allergy (Verified 10/15/17 09:03) VOMITING Past Medical History - Social History Smoking Status: Never Smoker Frequency of alcohol use: None Drug Abuse: None Family History: Reviewed & Not Pertinent - Past Medical History Cardiac Medical History: Reports: Hx Hypercholesterolemia, Hx Hypertension Denies: Hx Coronary Artery Disease, Hx Heart Attack Pulmonary Medical History: Denies: Hx Asthma, Hx Bronchitis, Hx COPD, Hx Pneumonia Neurological Medical History: Denies: Hx Cerebrovascular Accident, Hx Seizures Renal/ Medical History: Denies: Hx Peritoneal Dialysis GI Medical History: Reports: Hx Gastroesophageal Reflux Disease Musculoskeletal Medical History: Reports Hx Arthritis Past Surgical History: Reports: Hx Orthopedic Surgery - back surgery, foot surgery. Denies: Hx Hysterectomy - Immunizations Hx Diphtheria, Pertussis, Tetanus Vaccination: Yes Hx Pneumococcal Vaccination: 08/24/14 Review of Systems - Review of Systems Notes: My Normal Review Basic REVIEW OF SYSTEMS: CONSTITUTIONAL : Denies fever, chills, or sweats. Denies recent illness. EENT: Denies eye, ear, throat, or mouth pain or symptoms. Denies nasal or sinus congestion. CARDIOVASCULAR: Has chest pain RESPIRATORY: Denies cough, cold, or chest congestion. Denies shortness of breath, difficulty breathing, or wheezing. GASTROINTESTINAL: Denies abdominal pain. Denies nausea, vomiting, or diarrhea. Denies constipation. Last BM: MUSCULOSKELETAL: Denies neck or back pain or joint pain or swelling. SKIN: Denies rash or skin lesions. NEUROLOGICAL: Denies altered mental status or loss of consciousness. Denies headache. Denies weakness or paralysis or loss of use of either side. Denies problems with gait or speech. Denies sensory or motor loss. ALL OTHER SYSTEMS REVIEWED AND NEGATIVE. Physical Exam - Vital signs Vitals: Resp BP Pulse Ox 20 156/62 H 92 01/16/19 21:30 01/16/19 21:30 01/16/19 21:30 - Notes Notes: General Appearance: Well nourished, alert, cooperative, no acute distress, no obvious discomfort. Vitals: reviewed, See vital signs table. Head: no swelling or tenderness to the head Eyes: PERRL, EOMI, Conjuctiva clear Mouth: No decreasd moisture Chest wall: Patient does have tenderness to palpation of anterior chest. Lungs: No wheezing, No rales, No rhonci, No accessory muscle use, good air exchange bilaterally. Heart: Normal rate, Regular rythm, No murmur, no rub Abdomen: Normal BS, soft, No rigidity, No abdominal tenderness, No guarding, no rebound, no abdominal masses, no organomegaly Extremities: strength 5/5 in all extremities, good pulses in all extremities, no swelling or tenderness in the extremities, no edema. Skin: warm, dry, appropriate color, no rash Neuro: speech clear, oriented x 3, normal affect, responds appropriately to questions. Course - Re-evaluation Re-evalutation: 01/16/19 23:26 Exact cause of the patient's chest pain is not 100% clear. I suspect that this will likely be musculoskeletal in origin based on the fact that it does hurt when I push on her chest does hurt when she takes a deep breath; however, she has not had any recent trauma or injuries to her chest and she has pain that radiates down her left arm which makes it atypical for muscle skeletal origin. Her initial EKG and cardiac enzymes are negative. D-dimer is negative. Vital signs are stable. The Bentyl did help her pain some but she still has some. She does have multiple cardiac risk factors and therefore I think is appropriate for her to be admitted for observation and complete work-up. I did speak with Dr. Mosher, hospitalist, who agrees to evaluate the patient for admission. Dictation of this chart was performed using voice recognition software; therefore, there may be some unintended grammatical errors. - Vital Signs Vital signs: Temp Pulse Resp BP Pulse Ox 16 141/77 H 92 01/16/19 22:02 01/16/19 22:02 01/16/19 22:06 - Laboratory Result Diagrams: 01/16/19 21:50 01/16/19 21:50 Laboratory results interpreted by me: 01/16/19 21:50 Hgb 11.6 L MCH 26.9 L MCHC 31.6 L RDW 15.2 H - EKG Interpretation by Me Additional EKG results interpreted by me: 01/16/19 22:00 EKG is reviewed and interpreted by me. EKG shows sinus rhythm with a rate of 67 bpm. Patient has intermittent PVCs approximately after every 2 sinus beats. AK interval, QRS duration, QT intervals are within normal range. Old EKG for wendie miranda is from May 09, 2017. Discharge - Discharge Clinical Impression: Chest pain Qualifiers: Chest pain type: unspecified Qualified Code(s): R07.9 - Chest pain, unspecified Condition: Stable Disposition: ADMITTED OBSERVATION Admitting Provider: Nomi (Hospitalist) Unit Admitted: Telemetry Referrals: NOLAN BARTON MD [ACTIVE STAFF] - Follow up as needed
[2019-01-16] MEDS ORDERED: FENTANYL CITRATE INJ/PF 100 MCG/2 ML AMPUL IV ONE (22:09)
[2019-01-16 22:12] LABS: ALANINE AMINOTRANSFERASE 26 U/L (9-52); ALBUMIN 4.1 g/dL (3.5-5.0); ALKALINE PHOSPHATASE 88 U/L (38-126); ANION GAP 12 (5-19); ASPARTATE AMINO TRANSFERASE 25 U/L (14-36); BILIRUBIN,DIRECT 0.2 mg/dL (0.0-0.4); BILIRUBIN,TOTAL 0.3 mg/dL (0.2-1.3); BLOOD UREA NITROGEN 16 mg/dL (7-20); CALCIUM 9.3 mg/dL (8.4-10.2); CARBON DIOXIDE 27 mmol/L (22-30); CHLORIDE 101 mmol/L (98-107); GLUCOSE 97 mg/dL (75-110); POTASSIUM 3.7 mmol/L (3.6-5.0); SODIUM 139.9 mmol/L (137-145); TOTAL PROTEIN 6.7 g/dL (6.3-8.2)
--- NOTE | 2019-01-16 22:26 | RADIOLOGY REPORT (SQ) ---
EXAM DESCRIPTION: XR CHEST 1 VIEW COMPLETED DATE/TME: 01/16/2019 21:36 CLINICAL HISTORY: 84 years, Female, chest pain COMPARISON: Prior study from 05/08/2017 NUMBER OF VIEWS: One TECHNIQUE: Single frontal view of the chest was obtained. LIMITATIONS: None. FINDINGS: Cardiac and mediastinal contours are stable. Lungs are clear. No pleural effusion or pneumothorax. Severe right glenohumeral joint arthrosis is noted. A paperclip projects over the inferior aspect of the left hemithorax medially, presumably overlying the patient. IMPRESSION: No acute disease. A paperclip projects over the inferior aspect of the left hemithorax medially, presumably overlying the patient. Correlate. copyright 2010 [employer]- All Rights Reserved
[2019-01-16] MEDS ORDERED: LORAZEPAM 1 MG TABLET PO PRN (23:25)
[2019-01-16] MEDS ORDERED: MAG HYDROX/AL HYDROX/SIMETH SUSP 30 ML UDCUP PO PRN (23:26)
[2019-01-16] MEDS ORDERED: NITROGLYCERIN 0.4 MG/TAB 25 TAB/BOTTLE SL PRN (23:26)
--- NOTE | 2019-01-17 00:04 | EKG REPORT ---
SEVERITY:- ABNORMAL ECG - SINUS RHYTHM VENTRICULAR ECTOPICS : Confirmed by: Lourdes Valadez 17-Jan-2019 00:04:00
[2019-01-17] MEDS ORDERED: CYCLOBENZAPRINE HCL 10 MG TABLET PO PRN (00:15)
[2019-01-17] MEDS ORDERED: ACETAMINOPHEN 325 MG TABLET PO PRN (00:30)
[2019-01-17] MEDS ORDERED: KETOROLAC TROMETHAMINE INJ/PF 30 MG/1 ML SDV IV PRN (00:44)
[2019-01-17 01:48] VITALS: BP 155/68
--- NOTE | 2019-01-17 05:55 | PDOC H&P ---
History of Present Illness Admission Date/PCP: 01/16/19 22:32 Patient complains of: Chest pain History of Present Illness: MARK GOODE is a 84 year old female with a past medical history of hypertension, dyslipidemia, GERD, osteoarthritis and opiate dependent chronic pain. She presents with 6 hours of left-sided chest wall pain which radiates to the shoulder. She describes it as aching not associated with palpitations, nausea vomiting, diaphoresis. It is worsened by deep breathing and palpation of the chest wall. She denies trauma, injury or previous history. 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 In the emergency room she has an unremarkable work-up she is referred to the hospitalist for observation. Past Medical History Cardiac Medical History: Reports: Hyperlipidema, Hypertension Denies: Coronary Artery Disease, Myocardial Infarction Pulmonary Medical History: Denies: Asthma, Bronchitis, Chronic Obstructive Pulmonary Disease (COPD), Pneumonia Neurological Medical History: Denies: Seizures GI Medical History: Reports: Gastroesophageal Reflux Disease Musculoskeltal Medical History: Reports: Arthritis Hematology: Denies: Anemia Past Surgical History Past Surgical History: Reports: Orthopedic Surgery - back surgery, foot surgery Denies: Hysterectomy Social History Information Source: Patient, Emergency Med Personnel, [facility] Records Lives with: Spouse/Significant other Smoking Status: Never Smoker Frequency of Alcohol Use: None Drugs: None - Advance Directive Resuscitation Status: Full Code Family History Family History: Arthritis Parental Family History Reviewed: Yes Children Family History Reviewed: Yes Sibling(s) Family History Reviewed.: Yes Medication/Allergy Home Medications: Acetaminophen [Pain Reliever] 500 mg PO DAILYP PRN 07/22/13 Calcium Carbonate/Vitamin D3 [Caltrate 600 + D Tablet] 1 tab PO DAILY 07/22/13 Fentanyl 1 each TD Q72HP PRN 07/22/13 Lorazepam 1 mg PO TID PRN 07/22/13 Nifedipine [Nifedipine ER] 60 mg PO DAILY 07/22/13 Omeprazole 40 mg PO DAILY 07/22/13 Biotin 5,000 mcg PO DAILY 10/13/17 Cyanocobalamin (Vitamin B-12) [Vitamin B12] 2,500 mcg PO DAILY 10/13/17 Venlafaxine HCl [Effexor Xr] 150 mg PO DAILY 10/13/17 Cyclobenzaprine HCl [Flexeril 5 mg Tablet] 5 mg PO BIDP PRN #8 tablet 01/14/18 Allergies/Adverse Reactions: meperidine HCl [From Demerol] Allergy (Severe, Verified 10/15/17 09:03) VOMITING propoxyphene HCl [From Darvon] Allergy (Mild, Verified 10/15/17 09:03) VOMITING oxycodone HCl [From OxyContin] Allergy (Verified 10/15/17 09:03) VOMITING Review of Systems Constitutional: ABSENT: chills, fever(s), headache(s), weight gain, weight loss Eyes: ABSENT: visual disturbances Ears: ABSENT: hearing changes Cardiovascular: ABSENT: chest pain, dyspnea on exertion, edema, orthropnea, pa lpitations Respiratory: ABSENT: cough, hemoptysis Gastrointestinal: ABSENT: abdominal pain, constipation, diarrhea, hematemesis, hematochezia, nausea, vomiting Genitourinary: ABSENT: dysuria, hematuria Musculoskeletal: ABSENT: joint swelling Integumentary: ABSENT: rash, wounds Neurological: ABSENT: abnormal gait, abnormal speech, confusion, dizziness, focal weakness, syncope Psychiatric: ABSENT: anxiety, depression, homidical ideation, suicidal ideation Endocrine: ABSENT: cold intolerance, heat intolerance, polydipsia, polyuria Hematologic/Lymphatic: ABSENT: easy bleeding, easy bruising Physical Exam Vital Signs: Temp Pulse Resp BP Pulse Ox 98.1 F 64 15 155/68 H 94 01/17/19 01:46 01/17/19 02:00 01/17/19 01:46 01/17/19 01:46 01/17/19 01:46 Intake & Output 01/15/19 01/16/19 01/17/19 11:59 11:59 11:59 Weight 53 kg General appearance: PRESENT: cooperative, mild distress, thin, well-developed, well-nourished Head exam: PRESENT: atraumatic, normocephalic Eye exam: PRESENT: conjunctiva pink, EOMI, PERRLA. ABSENT: scleral icterus Ear exam: PRESENT: normal external ear exam Mouth exam: PRESENT: moist, tongue midline Neck exam: ABSENT: carotid bruit, JVD, lymphadenopathy, thyromegaly Respiratory exam: PRESENT: clear to auscultation pham. ABSENT: rales, rhonchi, wheezes Cardiovascular exam: PRESENT: RRR. ABSENT: diastolic murmur, rubs, systolic murmur Pulses: PRESENT: normal dorsalis pedis pul Vascular exam: PRESENT: normal capillary refill GI/Abdominal exam: PRESENT: normal bowel sounds, soft. ABSENT: distended, guarding, mass, organolmegaly, rebound, tenderness Torso Front/Back Image: 1 - Chest wall pain to palpation Rectal exam: PRESENT: deferred Extremities exam: PRESENT: full ROM. ABSENT: calf tenderness, clubbing, pedal edema Neurological exam: PRESENT: alert, awake, oriented to person, oriented to place, oriented to time, oriented to situation, CN II-XII grossly intact. ABSENT: motor sensory deficit Psychiatric exam: PRESENT: appropriate affect, normal mood. ABSENT: homicidal ideation, suicidal ideation Skin exam: PRESENT: dry, intact, warm. ABSENT: cyanosis, rash Results Laboratory Results: 01/16/19 21:50 01/16/19 21:50 01/16/19 01/16/19 21:50 21:50 WBC 7.3 RBC 4.29 Hgb 11.6 L Hct 36.5 MCV 85 MCH 26.9 L MCHC 31.6 L RDW 15.2 H Plt Count 222 Seg Neutrophils % 63.8 Lymphocytes % 20.1 Monocytes % 10.0 Eosinophils % 5.4 Basophils % 0.7 Absolute Neutrophils 4.7 Absolute Lymphocytes 1.5 Absolute Monocytes 0.7 Absolute Eosinophils 0.4 Absolute Basophils 0.1 Sodium 139.9 Potassium 3.7 Chloride 101 Carbon Dioxide 27 Anion Gap 12 BUN 16 Creatinine 0.52 Est GFR ( Amer) > 60 Est GFR (Non-Af Amer) > 60 Glucose 97 Calcium 9.3 Total Bilirubin 0.3 AST 25 ALT 26 Alkaline Phosphatase 88 Total Protein 6.7 Albumin 4.1 01/16/19 01/17/19 21:50 04:27 Troponin I < 0.012 < 0.012 Impressions: Chest X-Ray 01/16/19 21:36 IMPRESSION: No acute disease. A paperclip projects over the inferior aspect of the left hemithorax medially, presumably overlying the patient. Correlate. copyright 2010 [employer]- All Rights Reserved Assessment and Plan - Diagnosis (1) Atypical chest pain Is this a current diagnosis for this admission?: Yes Plan: Atypical chest pain though the patient's pain is atypical there are multiple risk factors for coronary artery disease and subsequently will observe and evaluation of acute coronary syndrome versus coronary artery disease with anginal equivalents. Cardiac monitoring blood pressure Q6 hours ,TSH, lipid profile, serial cardiac enzymes and cardiac stress test (2) Hypertension Is this a current diagnosis for this admission?: Yes Plan: Outpatient regiment with hydralazine as needed (3) Chronic pain Is this a current diagnosis for this admission?: Yes Plan: Under contract with [facility], continue outpatient regiment with NSAIDs as needed - Time Time Spent with patient: 35 or more minutes - Inpatient Certification Medical Necessity: Need Close Monitoring Due to Risk of Patient Decompensation
[2019-01-17] MEDS ORDERED: PANTOPRAZOLE SODIUM 40 MG TABLET.DR PO SCH (06:00)
[2019-01-17] MEDS ORDERED: CYANOCOBALAMIN (VITAMIN B-12) 1,000 MCG TABLET PO SCH (10:00)
[2019-01-17] MEDS ORDERED: VENLAFAXINE HCL 75 MG CAP.SR.24H PO SCH (10:00)
[2019-01-17] MEDS ORDERED: NIFEDIPINE 30 MG TAB.ER.24 PO SCH (10:00)
[2019-01-17] MEDS ORDERED: FENTANYL 12 MCG/HR PATCH.TD72 TD SCH (10:00)
--- NOTE | 2019-01-17 14:06 | EKG REPORT ---
SEVERITY:- BORDERLINE ECG - SINUS RHYTHM BORDERLINE T ABNORMALITIES, ANT-LAT LEADS : Confirmed by: Dina Moreno MD 17-Jan-2019 14:06:13
--- NOTE | 2019-01-17 14:08 | RADIOLOGY REPORT (SQ) ---
EXAM DESCRIPTION: CT CHEST WITHOUT COMPLETED DATE/TIME: 01/17/2019 1:53 pm REASON FOR STUDY: persistent pleuritic chest pain R09.1 PLEURISY COMPARISON: Chest x-ray 01/16/2019 TECHNIQUE: CT scan performed of the chest without intravenous contrast. Images reviewed with lung, soft tissue and bone windows. Reconstructed coronal and sagittal MPR images reviewed. All images st ored on PACS. All CT scanners at this facility use dose modulation, iterative reconstruction, and/or weight based d osing when appropriate to reduce radiation dose to as low as reasonably achievable (ALARA). [facility]: Dose Right [facility]: CareDose [facility]: Dose Right [facility]: Teradose 4D [facility]: [employer] RADIATION DOSE: CT Rad equipment meets quality standard of care and radiation dose reduction techniq ues were employed. CTDIvol: 4.8 mGy. DLP: 183 mGy-cm. mGy. LIMITATIONS: No technical limitations. FINDINGS: LUNGS AND PLEURA: There is small area of slight haziness in right middle lobe anteriorly. HILAR AND MEDIASTINAL STRUCTURES: Hiatal hernia. No mediastinal adenopathy or mass. HEART AND VASCULAR STRUCTURES: No aneurysm. No pericardial effusion. UPPER ABDOMEN: No significant findings. Limited exam. THYROID AND OTHER SOFT TISSUES: No masses. No adenopathy. BONES: No significant finding. HARDWARE: None in the chest. OTHER: No other significant findings. IMPRESSION: Cannot entirely exclude a very limited right middle lobe pneumonia. Small hiatal hernia . TECHNICAL DOCUMENTATION: JOB ID: [id number] Quality ID # [id number]: Final reports with documentation of one or more dose reduction techniques (e.g., Au tomated exposure control, adjustment of the mA and/or kV according to patient size, use of iterative reconstruction technique) 2010 [employer]- All Rights Reserved Reading location - IP/workstation name: [email or web address]
--- NOTE | 2019-01-17 16:58 | PDOC DISCHARGE SUMMARY ---
General - Admit/Disc Date/PCP Admission Date/Primary Care Provider: 01/16/19 22:32 Discharge Date: 01/17/19 - Discharge Diagnosis (1) Chest pain Is this a current diagnosis for this admission?: Yes - Additional Information Resuscitation Status: Full Code Discharge Diet: As Tolerated Discharge Activity: Activity As Tolerated, Balance Activity w/Rest Home Medications: Acetaminophen [Pain Reliever] 500 mg PO DAILYP PRN 07/22/13 Calcium Carbonate/Vitamin D3 [Caltrate 600 Plus D3 Tablet] 1 tab PO DAILY 07/22/13 Fentanyl 50 mcg TD Q72HP PRN 07/22/13 Nifedipine [Nifedipine ER] 60 mg PO DAILY 07/22/13 Omeprazole 20 mg PO BID 07/22/13 Cyanocobalamin (Vitamin B-12) [Vitamin B12] 2,500 mcg PO DAILY 10/13/17 Venlafaxine HCl [Effexor Xr] 150 mg PO QHS 10/13/17 Cyclosporine 0.05% Oph Emulsio [Restasis 0.05% Oph Emulsion Pf 0.4 ml] 1 drop OU BID 01/17/19 Lorazepam [Ativan 0.5 mg Tablet] 0.5 mg PO BIDP PRN 01/17/19 History of Present Illness History of Present Illness: Admitting hospitalist's H&P: MARK GOODE is a 84 year old female with a past medical history of hypertension, dyslipidemia, GERD, osteoarthritis and opiate dependent chronic pain. She presents with 6 hours of left-sided chest wall pain which radiates to the shoulder. She describes it as aching not associated with palpitations, nausea vomiting, diaphoresis. It is worsened by deep breathing and palpation of the chest wall. She denies trauma, injury or previous history. 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 In the emergency room she has an unremarkable work-up she is referred to the hospitalist for observation. Hospital Course Hospital Course: In summary, this is an 84-year-old female who was admitted for chest pain. Her initial EKG showed PVCs but subsequent EKG showed normal sinus rhythm with no ischemic changes. Her troponins were cycled and all came back negative. She had a normal d-dimer. Her chest pain was pleuritic in nature and was reproducible on palpation of the left sided chest wall. She did have a chest CT which showed a very small hazy infiltrate in the right middle lobe. However, patient did not have any cough, fever and leukocytosis suggestive of pneumonia. She did insist on going home today. She was recommended to follow-up with Dr. Person was given his contact detail for evaluation for possible outpatient stress testing. She does say that she is slightly overwhelmed at home due to her having advancing dementia. Discussed she could discuss this with her 's PCP to possibly get some home health services for him however she says she not want these services at the moment and would rather go home and take care of him herself. Physical Exam Vital Signs: Temp Pulse Resp BP Pulse Ox 98.1 F 63 15 155/68 H 94 01/17/19 15:14 01/17/19 15:14 01/17/19 15:14 01/17/19 15:14 01/17/19 15:14 Intake & Output 01/16/19 01/17/19 01/18/19 06:59 06:59 06:59 Intake Total 150 Output Total 1700 Balance -1550 Weight 116 lb 13.52 oz General appearance: PRESENT: no acute distress, well-developed, well-nourished Head exam: PRESENT: atraumatic, normocephalic Eye exam: PRESENT: conjunctiva pink, EOMI, PERRLA. ABSENT: scleral icterus Ear exam: PRESENT: normal external ear exam Mouth exam: PRESENT: moist, tongue midline Neck exam: ABSENT: carotid bruit, JVD, lymphadenopathy, thyromegaly Respiratory exam: PRESENT: clear to auscultation pham, other - Reproducible chest pain on palpation of the left chest wall. ABSENT: rales, rhonchi, wheezes Cardiovascular exam: PRESENT: RRR. ABSENT: diastolic murmur, rubs, systolic murmur Pulses: PRESENT: normal dorsalis pedis pul GI/Abdominal exam: PRESENT: normal bowel sounds, soft. ABSENT: distended, guarding, mass, organolmegaly, rebound, tenderness Rectal exam: PRESENT: deferred Extremities exam: PRESENT: full ROM. ABSENT: calf tenderness, clubbing, pedal edema Neurological exam: PRESENT: alert, awake, oriented to person, oriented to place, oriented to time, oriented to situation, CN II-XII grossly intact. ABSENT: motor sensory deficit Results Laboratory Results: 01/16/19 21:50 01/16/19 21:50 01/16/19 01/16/19 21:50 21:50 WBC 7.3 RBC 4.29 Hgb 11.6 L Hct 36.5 MCV 85 MCH 26.9 L MCHC 31.6 L RDW 15.2 H Plt Count 222 Seg Neutrophils % 63.8 Lymphocytes % 20.1 Monocytes % 10.0 Eosinophils % 5.4 Basophils % 0.7 Absolute Neutrophils 4.7 Absolute Lymphocytes 1.5 Absolute Monocytes 0.7 Absolute Eosinophils 0.4 Absolute Basophils 0.1 Sodium 139.9 Potassium 3.7 Chloride 101 Carbon Dioxide 27 Anion Gap 12 BUN 16 Creatinine 0.52 Est GFR ( Amer) > 60 Est GFR (Non-Af Amer) > 60 Glucose 97 Calcium 9.3 Total Bilirubin 0.3 AST 25 ALT 26 Alkaline Phosphatase 88 Total Protein 6.7 Albumin 4.1 01/16/19 01/17/19 01/17/19 21:50 04:27 10:14 Troponin I < 0.012 < 0.012 < 0.012 Impressions: Chest X-Ray 01/16/19 21:36 IMPRESSION: No acute disease. A paperclip projects over the inferior aspect of the left hemithorax medially, presumably overlying the patient. Correlate. copyright 2010 [employer]- All Rights Reserved Chest CT 01/17/19 11:40 IMPRESSION: Cannot entirely exclude a very limited right middle lobe pneumonia. Small hiatal hernia. Qualifiers - * PATIENT BEING DISCHARGED WITH ANY OF THE FOLLOWING DIAGNOSIS: No Acute Heart Failure Is this a Heart Failure Patient?: No
== END 2019-01-17 15:40 | disposition home or self-care (01) ==
LOC: ER 21:09 → EH 22:32 → 4S 01-17 01:41
PROVIDERS: ADMIT Internal Medicine; ATTEND Internal Medicine
DX: R07.89 Other chest pain (principal); M19.90 Unspecified osteoarthritis, unspecified site; G89.29 Other chronic pain; M54.9 Dorsalgia, unspecified; F11.20 Opioid dependence, uncomplicated; I49.3 Ventricular premature depolarization; R91.8 Other nonspecific abnormal finding of lung field; K21.9 Gastro-esophageal reflux disease without esophagitis; I10 Essential (primary) hypertension; Z79.899 Other long term (current) drug therapy; Z73.3 Stress, not elsewhere classified; Z63.6 Dependent relative needing care at home
CPT/HCPCS: 93005 ×2; 99285; 96374; 36415 ×2; 85025; 80053; 84484 ×2; 85379; 71045; 71250; 93010 ×2; G0378 ×2; A9270 ×5; J3010; J3490 ×2

== ENCOUNTER 2019-02-13 11:15 | Emergency (ER) | payer MEDICARE, OTHER ==
[2019-02-13 11:26] VITALS: BP 148/63
--- NOTE | 2019-02-13 11:38 | ER Document Report ---
ED Medical Screen (RME) - General Chief Complaint: Fall Injury Stated Complaint: FALL/BODY PAIN Time Seen by Provider: 02/13/19 11:35 TRAVEL OUTSIDE OF THE [place] IN LAST 30 DAYS: No - HPI Notes: 02/13/19 11:35 Patient is an 84-year-old female with a history of hypertension, neuropathy, ambulatory dysfunction who presents complaining of falls x2 this morning. Patient states that she is lying on the couch when she got up because someone was coming to her house and she tripped falling on the left side of her body onto carpet. Patient states that she braced her fall with her left leg and left arm. Patient states that she has a small skin tear to her forearm and has some bruising to her foot. She states that she has been able to ambulate since then. She denies hitting her head or losing consciousness. She is not on any blood thinning medications. She otherwise feels well aside from the pain of her left hip, foot, and forearm. Denies ALVES, fever, neck pain, URI, CP, SOB, Abd pain, dysuria, back pain, or rash. I have treated and performed a rapid initial assessment of this patient. A comprehensive ED assessment and evaluation of the patient, analysis of test results and completion of medical decision making process will be conducted by additional ED providers. PHYSICAL EXAMINATION: GENERAL: Well-appearing, well-nourished and in no acute distress. A&Ox4. Answers questions appropriately. Head: atraumatic (recent skin biopsy ecchymosis noted rt forehead). No bogginess or hematoma. Neck: No midline tenderness and FROM. LUNGS: Breath sounds clear to auscultation bilaterally and equal. No wheezes rales or rhonchi. HEART: Regular rate and rhythm without murmurs, rubs, gallops. MS: + tenderness left lateral hip, mid dorsal forearm with noted skin tear, and left lateral foot with associated ecchymosis/mild swelling near ATFL. FROM otherwise. Strength 5+/5. N/V intact distal throughout. Extremities: No cyanosis, clubbing, or edema b/l. NEUROLOGICAL: Normal speech. Cranial nerves grossly intact PSYCH: Normal mood, normal affect. - Related Data Allergies/Adverse Reactions: meperidine HCl [From Demerol] Allergy (Severe, Verified 02/13/19 11:19) VOMITING propoxyphene HCl [From Darvon] Allergy (Mild, Verified 02/13/19 11:19) VOMITING oxycodone HCl [From OxyContin] Allergy (Verified 02/13/19 11:19) VOMITING tetanus and diphtheria toxoids Adverse Reaction (Verified 02/13/19 11:35) Past Medical History - Past Medical History Cardiac Medical History: Reports: Hx Hypercholesterolemia, Hx Hypertension Denies: Hx Coronary Artery Disease, Hx Heart Attack Pulmonary Medical History: Denies: Hx Asthma, Hx Bronchitis, Hx COPD, Hx Pneumonia Neurological Medical History: Denies: Hx Cerebrovascular Accident, Hx Seizures Renal/ Medical History: Denies: Hx Peritoneal Dialysis GI Medical History: Reports: Hx Gastroesophageal Reflux Disease Musculoskeltal Medical History: Reports Hx Arthritis Past Surgical History: Reports: Hx Orthopedic Surgery - back surgery, foot surgery. Denies: Hx Hysterectomy - Immunizations Hx Diphtheria, Pertussis, Tetanus Vaccination: Yes Influenza Administration Date for 05/2017 - 10/2017 Season: 06/24/17 Physical Exam - Vital signs Vitals: Temp Pulse Resp BP Pulse Ox 98.5 F 74 16 148/63 H 96 02/13/19 11:24 02/13/19 11:24 02/13/19 11:24 02/13/19 11:24 02/13/19 11:24 Course - Vital Signs Vital signs: Temp Pulse Resp BP Pulse Ox 98.5 F 74 16 148/63 H 96 02/13/19 11:24 02/13/19 11:24 02/13/19 11:24 02/13/19 11:24 02/13/19 11:24
[2019-02-13] MEDS ORDERED: ACETAMINOPHEN 325 MG TABLET PO ONE (11:39)
--- NOTE | 2019-02-13 12:34 | RADIOLOGY REPORT (SQ) ---
EXAM DESCRIPTION: FOREARM LEFT COMPLETED DATE/TIME: 02/13/2019 12:15 pm REASON FOR STUDY: pain s/p fall COMPARISON: None. NUMBER OF VIEWS: Two views. TECHNIQUE: Two radiographic images acquired of the left forearm, including elbow and wrist in at se[address] one projection. LIMITATIONS: None. FINDINGS: No acute fracture or bony abnormality identified. . IMPRESSION: NORMAL LEFT FOREARM. TECHNICAL DOCUMENTATION: JOB ID: [id number] SC-[id number] 2010 [employer]- All Rights Reserved Reading location - IP/workstation name: [email or web address]
--- NOTE | 2019-02-13 12:35 | RADIOLOGY REPORT (SQ) ---
EXAM DESCRIPTION: FOOT LEFT COMPLETE COMPLETED DATE/TIME: 02/13/2019 12:15 pm REASON FOR STUDY: pain s/p fall COMPARISON: None. NUMBER OF VIEWS: Three views. TECHNIQUE: AP, lateral and oblique radiographic images acquired of the left foot. LIMITATIONS: None. FINDINGS: MINERALIZATION: Normal. BONES: Small plantar calcaneal bone spur. Otherwise ,no acute fracture or bony abnormality. . JOINTS: No effusions. SOFT TISSUES: No soft tissue swelling. No foreign body. OTHER: No other significant finding. IMPRESSION: NO ACUTE FRACTURE IDENTIFIED. TECHNICAL DOCUMENTATION: JOB ID: [id number] SC-[id number] 2010 [employer]- All Rights Reserved Reading location - IP/workstation name: [email or web address]
--- NOTE | 2019-02-13 12:37 | RADIOLOGY REPORT (SQ) ---
EXAM DESCRIPTION: HIP LEFT AP/LATERAL COMPLETED DATE/TIME: 02/13/2019 12:15 pm REASON FOR STUDY: pain s/p fall COMPARISON: None. NUMBER OF VIEWS: Two views. TECHNIQUE: AP pelvis and additional frog-leg view of the left hip. LIMITATIONS: None. FINDINGS: Lumbar spondylosis. Lumbar scoliosis convex left. Changes of previous laminectomy. Dege nerative changes of the SI joints. Articular calcification consistent with changes of chondrocalcino sis at pubic symphysis and right femoroacetabular joint. IMPRESSION: No acute fracture. TECHNICAL DOCUMENTATION: JOB ID: [id number] SC-[id number] 2010 [employer]- All Rights Reserved Reading location - IP/workstation name: [email or web address]
--- NOTE | 2019-02-13 17:07 | ER Document Report ---
Entered by HEATH NAIK SCRIBE 02/13/19 [id number] Acting as scribe for:ELISABET ROBERTSON DO ED General - General Chief Complaint: Fall Injury Stated Complaint: FALL/BODY PAIN Time Seen by Provider: 02/13/19 11:35 Primary Care Provider: GELACIO SANCHEZ MD [Primary Care Provider] - Follow up as needed Mode of Arrival: Ambulatory Information source: Patient Notes: Patient is an 84 year old female presenting to the emergency department complaining of left ankle pain and a left forearm skin tear secondary a mechanical trip and fall. Patient states she was had a mechanical trip and fall in her living room hitting her left side, but not hitting her head. She denies any loss of consciousness, chest pain, dizziness, trouble breathing or being on blood thinners. She has not had any difficulty walking since the fall. Patient does state that her legs felt like "water buckets" last night and reports some swelling that has improved since she has elevated her legs over night. Patient is unsure when her last tetanus shot was, but states she thinks she may have had one within the past 10 years and does not want another one. TRAVEL OUTSIDE OF THE [place] IN LAST 30 DAYS: No - Related Data Allergies/Adverse Reactions: meperidine HCl [From Demerol] Allergy (Severe, Verified 02/13/19 11:19) VOMITING propoxyphene HCl [From Darvon] Allergy (Mild, Verified 02/13/19 11:19) VOMITING oxycodone HCl [From OxyContin] Allergy (Verified 02/13/19 11:19) VOMITING tetanus and diphtheria toxoids Adverse Reaction (Verified 02/13/19 11:35) Past Medical History - General Information source: Patient - Social History Smoking Status: Never Smoker Cigarette use (# per day): No Chew tobacco use (# tins/day): No Smoking Education Provided: No Frequency of alcohol use: None Drug Abuse: None Lives with: Alone Family History: Arthritis Patient has suicidal ideation: No Patient has homicidal ideation: No - Past Medical History Cardiac Medical History: Reports: Hx Hypercholesterolemia, Hx Hypertension GI Medical History: Reports: Hx Gastroesophageal Reflux Disease Musculoskeletal Medical History: Reports Hx Arthritis Past Surgical History: Reports: Hx Orthopedic Surgery - back surgery, foot surgery - Immunizations Hx Diphtheria, Pertussis, Tetanus Vaccination: Yes Hx Pneumococcal Vaccination: 08/24/14 Review of Systems - Review of Systems Constitutional: No symptoms reported EENT: No symptoms reported Cardiovascular: Edema Respiratory: No symptoms reported Gastrointestinal: No symptoms reported Genitourinary: No symptoms reported Female Genitourinary: No symptoms reported Musculoskeletal: See HPI Skin: See HPI Hematologic/Lymphatic: No symptoms reported Neurological/Psychological: No symptoms reported -: Yes All other systems reviewed and negative Physical Exam - Vital signs Vitals: Temp Pulse Resp BP Pulse Ox 98.5 F 74 16 148/63 H 96 02/13/19 11:24 02/13/19 11:24 02/13/19 11:24 02/13/19 11:24 02/13/19 11:24 - Notes Notes: GENERAL: Alert, interacts well. No acute distress. HEAD: Normocephalic, well-healing lesion to the right forehead consistent with history of recent biopsy. EYES: Pupils equal, round, and reactive to light. Extraocular movements intact. ENT: Oral mucosa moist, tongue midline. NECK: Full range of motion. Supple. Trachea midline. LUNGS: Clear to auscultation bilaterally, no wheezes, rales, or rhonchi. No respiratory distress. HEART: Regular rate and rhythm. No murmurs, gallops, or rubs. ABDOMEN: Soft, non-tender. Non-distended. Bowel sounds present in all 4 quadrants. No guarding, rigidity, or rebound. EXTREMITIES: Moves all 4 extremities spontaneously. Superficial abrasion to the left knee. There is a flap shaped skin tear with a 2nd flap laterally on the ulnar aspect of the left forearm, approximately [id number] with base of flap also being 2cm. Tender to palpation just below the lateral malleolus to the the lateral aspect of left foot, no step-offs or deformities. NEUROLOGICAL: Alert and oriented x3. Normal speech. PSYCH: Normal affect, normal mood. SKIN: Warm, dry, normal turgor. Course - Re-evaluation Re-evalutation: 02/13/19 13:14 X-rays of the hip, left forearm and left foot are all negative for acute fracture or dislocation. examination does reveal a skin flap/tear to the left ulnar aspect of the forearm, this will be approximated using Steri-Strips. Discharged to home. 02/13/19 17:06 - Vital Signs Vital signs: Temp Pulse Resp BP Pulse Ox 98.5 F 74 16 148/63 H 96 02/13/19 11:24 02/13/19 11:24 02/13/19 11:24 02/13/19 11:24 02/13/19 11:24 Procedures - Laceration/Wound Repair Left Lower Arm Wound length (cm): 3 Wound's Depth, Shape: Superficial, Flap Laceration pre-procedure: Shur-Clens applied Wound explored: Clean, No foreign body removed Wound Repaired With: Steri-strips Post-procedure NV exam normal: Yes Complications: No Discharge - Discharge Clinical Impression: Left ankle sprain Qualifiers: Encounter type: initial encounter Involved ligament of ankle: calcaneofibular ligament Qualified Code(s): S93.412A - Sprain of calcaneofibular ligament of left ankle, initial encounter Skin tear of left forearm without complication Qualifiers: Encounter type: initial encounter Qualified Code(s): S51.812A - Laceration without foreign body of left forearm, initial encounter Fall at home Qualifiers: Encounter type: initial encounter Qualified Code(s): W19.XXXA - Unspecified fall, initial encounter; Y92.009 - Unspecified place in unspecified non- institutional (private) residence as the place of occurrence of the external cause Condition: Stable Disposition: HOME, SELF-CARE Additional Instructions: Sprained Ankle Your sprained ankle results from stretching or tearing of the ligaments which support the ankle. This usually results from twisting the foot inward and under. The ligaments will require time and protection in order to heal properly. Many ankle sprains are quite disabling, and should be taken seriously. The usual treatment for an ankle sprain is cold packs; protection with tape, splints, or wraps; elevation; and staying off the ankle for at least a day. As the ankle improves, you can walk IF it's not painful to bear weight. Sports are best postponed until healing is complete. More serious sprains usually require strengthening exercises after early healing. Your physician has assessed the seriousness of the ligament injury to your ankle. However, the treatment may change, depending on how your ankle progresses. If further exams were recommended, it is important that you follow through. Call the doctor if your foot becomes numb, painful, or severely swollen. Skin Tear Your wound is a skin tear. These wounds are difficult and sometimes impossible to suture because the skin is so fragile that it may not hold the sutures. The skin condition can be due to aging and sometimes medications. The best care for such skin tears is sometimes to not try to suture them. Rather, it is best to position the skin as closely as possible to its original location and apply a bandage that can remain in place for several days at a time and sometimes these bandages are left in place until the wound has healed. Most skin tears will heal in about two weeks. Because they are so difficult to care for, skin tears should be expected to leave some scarring. Referrals: GELACIO SANCHEZ MD [Primary Care Provider] - Follow up as needed I personally performed the services described in the documentation, reviewed and edited the documentation which was dictated to the scribe in my presence, and it accurately records my words and actions.
== END 2019-02-13 14:45 | disposition home or self-care (01) ==
LOC: ER 11:15
DX: S93.412A Sprain of calcaneofibular ligament of left ankle, initial encounter (principal); S51.812A Laceration without foreign body of left forearm, initial encounter; S80.212A Abrasion, left knee, initial encounter; M25.572 Pain in left ankle and joints of left foot; W01.0XXA Fall on same level from slipping, tripping and stumbling without subsequent striking against object, initial encounter; Y92.008 Other place in unspecified non-institutional (private) residence as the place of occurrence of the external cause; E78.00 Pure hypercholesterolemia, unspecified; I10 Essential (primary) hypertension
CPT/HCPCS: 99283

== ENCOUNTER 2019-10-27 16:57 | Observation (INO) | payer MEDICARE, OTHER ==
[2019-10-27] MEDS ORDERED: ASPIRIN 81 MG TABLET, CHEWABLE PO ONE (17:06)
--- NOTE | 2019-10-27 17:22 | ER Document Report ---
ED Medical Screen (RME) - General Chief Complaint: Shortness Of Breath Stated Complaint: COUGH,CONGESTION,SHORT OF BREATH Time Seen by Provider: 10/27/19 17:06 Mode of Arrival: Wheelchair Information source: Patient, Dr. Office Notes: 84-year-old female presented to ED for increased weakness shortness of breath right chest pain going to her right shoulder up to her neck with neck vein enlargement. Her primary doctor is Dr. Russell at [facility]. Antionette ULLOA sent her to the emergency room today for the diagnosis of acute CHF. She states she definitely has JVD with weight gain weakness shortness of breath. She states she had a stress test about [address] Russell that was negative. She states that this pain started a week ago but she could not come in because her is disabled and she could not leave him. Patient is alert oriented short of breath and continued to complain of pain to the right chest. Lungs very moist ending throughout. I have greeted and performed a rapid initial assessment of this patient. A comprehensive ED assessment and evaluation of the patient, analysis of test results and completion of medical decision making process will be conducted by an additional ED providers. TRAVEL OUTSIDE OF THE [place] IN LAST 30 DAYS: No - Related Data Allergies/Adverse Reactions: meperidine HCl [From Demerol] Allergy (Severe, Verified 02/13/19 11:19) VOMITING propoxyphene HCl [From Darvon] Allergy (Mild, Verified 02/13/19 11:19) VOMITING oxycodone HCl [From OxyContin] Allergy (Verified 02/13/19 11:19) VOMITING tetanus and diphtheria toxoids Adverse Reaction (Verified 02/13/19 11:35) Past Medical History - Past Medical History Cardiac Medical History: Reports: Hx Hypercholesterolemia, Hx Hypertension Denies: Hx Coronary Artery Disease, Hx Heart Attack Pulmonary Medical History: Denies: Hx Asthma, Hx Bronchitis, Hx COPD, Hx Pneumonia Neurological Medical History: Denies: Hx Cerebrovascular Accident, Hx Seizures Renal/ Medical History: Denies: Hx Peritoneal Dialysis GI Medical History: Reports: Hx Gastroesophageal Reflux Disease Musculoskeltal Medical History: Reports Hx Arthritis Past Surgical History: Reports: Hx Orthopedic Surgery - back surgery, foot surgery. Denies: Hx Hysterectomy - Immunizations Hx Diphtheria, Pertussis, Tetanus Vaccination: Yes Physical Exam - Vital signs Vitals: Temp Pulse Resp BP Pulse Ox 98.7 F 65 24 H 169/83 H 92 10/27/19 17:21 10/27/19 17:21 10/27/19 17:21 10/27/19 17:21 10/27/19 17:21 Course - Vital Signs Vital signs: Temp Pulse Resp BP Pulse Ox 98.7 F 65 19 171/63 H 95 10/27/19 17:21 10/27/19 17:21 10/27/19 19:28 10/27/19 19:28 10/27/19 19:28 - Laboratory Result Diagrams: 10/27/19 17:50 10/27/19 17:50 Laboratory results interpreted by me: 10/27/19 10/27/19 10/27/19 17:50 17:50 17:50 RBC 3.48 L Hgb 10.0 L Hct 29.4 L RDW 15.2 H Carbon Dioxide 31 H NT-Pro-B Natriuret Pep 4500 H Urine Protein Urine Urobilinogen 10/27/19 18:13 RBC Hgb Hct RDW Carbon Dioxide NT-Pro-B Natriuret Pep Urine Protein 30 H Urine Urobilinogen 2.0 H Doctor's Discharge - Discharge Clinical Impression: New onset of congestive heart failure Condition: Fair Disposition: ADMITTED INPATIENT
--- NOTE | 2019-10-27 17:26 | EKG REPORT ---
SEVERITY:- BORDERLINE ECG - SINUS RHYTHM ATRIAL PREMATURE COMPLEX CONSIDER ANTERIOR INFARCT : Confirmed by: Alejandro Schmitt MD 27-Oct-2019 17:25:36
--- NOTE | 2019-10-27 17:46 | RADIOLOGY REPORT (SQ) ---
EXAM DESCRIPTION: CHEST 2 VIEWS COMPLETED DATE/TIME: 10/27/2019 5:32 pm REASON FOR STUDY: Shortness of breath chest pain COMPARISON: 01/16/2019. EXAM PARAMETERS: NUMBER OF VIEWS: two views TECHNIQUE: Digital Frontal and Lateral radiographic views of the chest acquired. RADIATION DOSE: NA LIMITATIONS: none FINDINGS: LUNGS AND PLEURA: Hyperinflation. Diffuse interstitial prominence. Small pleural effusio ns. MEDIASTINUM AND HILAR STRUCTURES: No masses or contour abnormalities. HEART AND VASCULAR STRUCTURES: Heart normal size. No evidence for failure. BONES: No acute findings. Old rib fracture. Degenerative changes in the spine and shoulders. HARDWARE: None in the chest. OTHER: No other significant finding. 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 CANNOT E XCLUDE A COMPONENT OF INTERSTITIAL EDEMA. THERE ARE ALSO SMALL PLEURAL EFFUSIONS. TECHNICAL DOCUMENTATION: JOB ID: [id number] 2010 [employer]- All Rights Reserved Reading location - IP/workstation name: [email or web address]
[2019-10-27 18:12] LABS: ABSOLUTE EOSINOPHILS # (AUTO) 0.2 10^3/uL (0.0-0.6); ABSOLUTE NEUT (AUTO) 2.9 10^3/uL (1.7-8.2); EOSINOPHILS % (AUTO) 4.3 % (0-6); TOTAL CELLS COUNTED % (AUTO) 100 %
[2019-10-27 18:15] LABS: VENOUS BLOOD BASE EXCESS 0.2 mmol/L; VENOUS BLOOD HCO3 26.4 mmol/L (20-32); VENOUS BLOOD PCO2 49.8 mmHg (35-63); VENOUS BLOOD PH 7.34 (7.30-7.42)
[2019-10-27 18:18] LABS: ABSOLUTE MONOCYTES (AUTO) 0.6 10^3/uL (0.1-1.4); BASOPHILS % (AUTO) 0.8 % (0-2); HEMATOCRIT 29.4 % (36.0-47.0); LYMPHOCYTES % (AUTO) 20.6 % (13-45); MEAN CORPUSCULAR HEMOGLOBIN 28.8 pg (27.0-33.4); MEAN CORPUSCULAR HGB CONC 34.1 g/dL (32.0-36.0); MEAN CORPUSCULAR VOLUME 85 fl (80-97); MONOCYTES % (AUTO) 11.7 % (3-13); PLATELET COUNT 211 10^3/uL (150-450); RED BLOOD COUNT 3.48 10^6/uL (3.72-5.28); RED CELL DISTRIBUTION WIDTH 15.2 % (11.5-14.0); SEGMENTED NEUTROPHILS % (AUTO) 62.6 % (42-78); WHITE BLOOD COUNT 4.7 10^3/uL (4.0-10.5)
[2019-10-27 18:21] LABS: PROTHROMBIN TIME 13.2 SEC (11.4-15.4)
[2019-10-27 18:22] LABS: PARTIAL THROMBOPLASTIN TIME 28.1 SEC (23.5-35.8)
[2019-10-27 18:27] LABS: APPEARANCE,URINE CLEAR; BILIRUBIN,URINE NEGATIVE (NEGATIVE); COLOR,URINE YELLOW; GLUCOSE, URINE NEGATIVE (NEGATIVE); KETONES,URINE NEGATIVE (NEGATIVE); LEUKOCYTE ESTERASE,URINE NEGATIVE (NEGATIVE); NITRITE,URINE NEGATIVE (NEGATIVE); PROTEIN,URINE 30 mg/dL (NEGATIVE); URINE SPECIFIC GRAVITY 1.015
[2019-10-27 18:31] LABS: ALBUMIN 4.2 g/dL (3.5-5.0); ALKALINE PHOSPHATASE 107 U/L (38-126); ANION GAP 8 (5-19); ASPARTATE AMINO TRANSFERASE 34 U/L (14-36); BILIRUBIN,DIRECT 0.3 mg/dL (0.0-0.4); BILIRUBIN,TOTAL 0.4 mg/dL (0.2-1.3); BLOOD UREA NITROGEN 16 mg/dL (7-20); CALCIUM 9.3 mg/dL (8.4-10.2); CARBON DIOXIDE 31 mmol/L (22-30); CHLORIDE 99 mmol/L (98-107); GLUCOSE 104 mg/dL (75-110); POTASSIUM 4.9 mmol/L (3.6-5.0)
[2019-10-27 18:53] LABS: TROPONIN I 0.038 ng/mL
[2019-10-27] MEDS ORDERED: FUROSEMIDE INJ/PF 40 MG/4 ML SDV IV ONE (19:24)
--- NOTE | 2019-10-27 19:34 | ER Document Report ---
ED General - General Chief Complaint: Chest Pain Stated Complaint: COUGH,CONGESTION,SHORT OF BREATH Time Seen by Provider: 10/27/19 17:06 Primary Care Provider: GELACIO SANCHEZ MD [Primary Care Provider] - Follow up as needed Mode of Arrival: Wheelchair Notes: 84-year-old female sent to the emergency department by Dr. Briggs and Dr. Oneal's office. Patient states that she has been having some right-sided arm and neck pain that worsened today associated with shortness of breath that is worsened while laying flat and a whistling sound when she breathes. Patient also complains of swollen legs and large neck veins. Patient states she was seen in outside office today and told that she had fluid on her lungs based off of her physical exam and her chest x-ray. Patient denies prior history of congestive heart failure. TRAVEL OUTSIDE OF THE [place] IN LAST 30 DAYS: No - Related Data Allergies/Adverse Reactions: meperidine HCl [From Demerol] Allergy (Severe, Verified 02/13/19 11:19) VOMITING propoxyphene HCl [From Darvon] Allergy (Mild, Verified 02/13/19 11:19) VOMITING oxycodone HCl [From OxyContin] Allergy (Verified 02/13/19 11:19) VOMITING tetanus and diphtheria toxoids Adverse Reaction (Verified 02/13/19 11:35) Home Medications: CHF Past Medical History - General Information source: Patient, DrWandy Office - Social History Smoking Status: Never Smoker Chew tobacco use (# tins/day): No Frequency of alcohol use: None Drug Abuse: None Family History: Arthritis Patient has suicidal ideation: No Patient has homicidal ideation: No - Past Medical History Cardiac Medical History: Reports: Hx Hypercholesterolemia, Hx Hypertension Denies: Hx Coronary Artery Disease, Hx Heart Attack Pulmonary Medical History: Denies: Hx Asthma, Hx Bronchitis, Hx COPD, Hx Pneumonia Neurological Medical History: Denies: Hx Cerebrovascular Accident, Hx Seizures Renal/ Medical History: Denies: Hx Peritoneal Dialysis GI Medical History: Reports: Hx Gastroesophageal Reflux Disease Musculoskeletal Medical History: Reports Hx Arthritis Past Surgical History: Reports: Hx Orthopedic Surgery - back surgery, foot surgery. Denies: Hx Hysterectomy - Immunizations Hx Diphtheria, Pertussis, Tetanus Vaccination: Yes Hx Pneumococcal Vaccination: 08/24/14 Review of Systems - Review of Systems Constitutional: No symptoms reported EENT: See HPI - Distended neck veins. Cardiovascular: Orthopnea, Edema. denies: Chest pain Respiratory: See HPI, Short of breath. denies: Cough Gastrointestinal: No symptoms reported Musculoskeletal: See HPI, Leg swelling, Ankle swelling -: Yes All other systems reviewed and negative Physical Exam - Vital signs Vitals: Temp Pulse Resp BP Pulse Ox 98.7 F 65 24 H 169/83 H 92 10/27/19 17:21 10/27/19 17:21 10/27/19 17:21 10/27/19 17:21 10/27/19 17:21 Interpretation: Hypertensive, Tachypneic - Notes Notes: GENERAL: Alert, interacts well. No acute distress. HEAD: Normocephalic, atraumatic EYES: Pupils equal, round and reactive to light, extraocular movements intact. ENT: Oral mucosa moist, tongue midline. NECK: Full range of motion, supple, trachea midline. LUNGS: Crackles at the bases, no expiratory wheezing, no respiratory distress, on 2 L via nasal cannula, 91 to 92%. Patient does not normally use oxygen at home. HEART: Regular rate and rhythm, no murmurs, gallops, rubs. ABDOMEN: Soft, nontender, nondistended, bowel sounds present in all 4 quadrants. EXTREMITIES: Moves all 4 extremities spontaneously, 1+ pitting edema to the mid tibia edema, radial and dorsalis pedis pulses 2/4 bilaterally. No cyanosis. NEUROLOGICAL: Alert and oriented x3, normal speech. PSYCH: Normal mood, normal affect. SKIN: Warm, Dry, normal turgor, no rashes or lesions noted. Course - Re-evaluation Re-evalutation: 10/27/19 19:32 CBC shows anemia with hemoglobin of 10, coags unremarkable, venous blood gas unremarkable, CMP unremarkable, troponin initially indeterminate at 0.038, proBNP elevated at 4500, urinalysis unremarkable, chest x-ray shows scarring versus interstitial edema. Presently I favor interstitial edema given clinical examination and elevated proBNP. Will discuss patient with Dr. Black the hospitalist for admission for new onset congestive heart failure. - Vital Signs Vital signs: Temp Pulse Resp BP Pulse Ox 98.7 F 65 24 H 169/83 H 94 10/27/19 17:21 10/27/19 17:21 10/27/19 17:21 10/27/19 17:21 10/27/19 18:05 - Laboratory Result Diagrams: 10/27/19 17:50 10/27/19 17:50 Laboratory results interpreted by me: 10/27/19 10/27/19 10/27/19 17:50 17:50 17:50 RBC 3.48 L Hgb 10.0 L Hct 29.4 L RDW 15.2 H Carbon Dioxide 31 H NT-Pro-B Natriuret Pep 4500 H Urine Protein Urine Urobilinogen 10/27/19 18:13 RBC Hgb Hct RDW Carbon Dioxide NT-Pro-B Natriuret Pep Urine Protein 30 H Urine Urobilinogen 2.0 H - EKG Interpretation by Me Additional EKG results interpreted by me: 10/27/19 19:33 EKG shows sinus rhythm at a rate of 65, 1 PAC, no ST segment elevations or depressions, there are T wave inversions in lead III, poor R wave progression per my interpretation. Discharge - Discharge Clinical Impression: New onset of congestive heart failure Condition: Fair Disposition: ADMITTED INPATIENT Admitting Provider: Saúl Unit Admitted: Telemetry Referrals: GELACIO SANCHEZ MD [Primary Care Provider] - Follow up as needed
[2019-10-27] MEDS ORDERED: ACETAMINOPHEN 650 MG SUPP.RECT PR PRN (22:18)
[2019-10-27] MEDS ORDERED: ONDANSETRON 4 MG TAB.RAPDIS PO PRN (22:18)
[2019-10-27] MEDS ORDERED: LORAZEPAM 0.5 MG TABLET PO PRN (22:23)
[2019-10-27] MEDS ORDERED: POLYVINYL ALCOHOL 1.4% OPH SOLN 15 ML OP PRN (22:23)
--- NOTE | 2019-10-27 22:41 | PDOC H&P ---
History of Present Illness Admission Date/PCP: 10/27/19 20:28 GELACIO SANCHEZ MD History of Present Illness: MARK GOODE is a 84 year old female with past medical history of hypertension, HLD, TIAs, chronic pain syndrome who presented to ED after 3 days of progressive shortness of breath/ABEBE and worsening BLE edema. Patient states her legs swell occasionally but never this bad. She denies any history of [place] or CHF in the past. She does state that CHF runs strongly in her family among first-degree relatives. Chest x-ray done at a local clinic showed pulmonary fluid and she was sent to ED from there. EKG unremarkable but BNP up to 4500, troponin not negative but indeterminant low. Patient states she had a stress test within the past year and this was negative. Given Lasix and placed on supplemental oxygen in ED, admitted for further work-up of likely new CHF. Past Medical History Cardiac Medical History: Reports: Hyperlipidema, Hypertension Denies: Coronary Artery Disease, Myocardial Infarction Pulmonary Medical History: Denies: Asthma, Bronchitis, Chronic Obstructive Pulmonary Disease (COPD), Pn [facility] Medical History: Denies: Seizures GI Medical History: Reports: Gastroesophageal Reflux Disease Musculoskeltal Medical History: Reports: Arthritis Hematology: Denies: Anemia Past Surgical History Past Surgical History: Reports: Orthopedic Surgery - back surgery, foot surgery Denies: Hysterectomy Social History Information Source: Patient Lives with: Alone Smoking Status: Never Smoker Electronic Cigarette use?: No Frequency of Alcohol Use: None Drugs: None - Advance Directive Resuscitation Status: Full Code Surrogate healthcare decision maker:: Son Family History Family History: Arthritis, Other - CHF and multiple first-degree relatives Parental Family History Reviewed: Yes Children Family History Reviewed: Yes Sibling(s) Family History Reviewed.: Yes Medication/Allergy Home Medications: Acetaminophen [Pain Reliever] 500 mg PO DAILYP PRN 07/22/13 Calcium Carbonate/Vitamin D3 [Caltrate 600 Plus D3 Tablet] 1 tab PO DAILY 07/22/13 Fentanyl 50 mcg TD Q72HP PRN 07/22/13 Omeprazole 20 mg PO BID 07/22/13 Cyanocobalamin (Vitamin B-12) [Vitamin B12] 2,500 mcg PO DAILY 10/13/17 Venlafaxine HCl [Effexor Xr] 150 mg PO QHS 10/13/17 Lorazepam [Ativan 0.5 mg Tablet] 0.5 mg PO BIDP PRN 01/17/19 Cyclosporine 0.05% Oph Emulsio [Restasis 0.05% Opthalmic Droperette] 1 drop OU BID 10/27/19 Labetalol HCl 100 mg PO BID 10/27/19 Polyvinyl Alcohol [Liquitears 1.4% Ophth Soln 15 ml] 1 drop OP DAILYP PRN 10/27/19 Allergies/Adverse Reactions: meperidine HCl [From Demerol] Allergy (Severe, Verified 02/13/19 11:19) VOMITING propoxyphene HCl [From Darvon] Allergy (Mild, Verified 02/13/19 11:19) VOMITING oxycodone HCl [From OxyContin] Allergy (Verified 02/13/19 11:19) VOMITING tetanus and diphtheria toxoids Adverse Reaction (Verified 02/13/19 11:35) Review of Systems All systems: reviewed and no additional remarkable complaints except as stated - See HPI for full ROS, otherwise negative Cardiovascular: PRESENT: dyspnea on exertion, edema, orthropnea Physical Exam Vital Signs: Temp Pulse Resp BP Pulse Ox 98.7 F 65 19 171/63 H 95 10/27/19 17:21 10/27/19 17:21 10/27/19 19:28 10/27/19 19:28 10/27/19 19:28 Intake & Output 10/26/19 10/27/19 10/28/19 06:59 06:59 06:59 Weight 56.5 kg General appearance: PRESENT: no acute distress, cooperative, well-developed, well-nourished Head exam: PRESENT: atraumatic, normocephalic Eye exam: PRESENT: conjunctiva pink Mouth exam: PRESENT: moist Respiratory exam: PRESENT: crackles. ABSENT: decreased breath sounds, tachypnea, wheezes Cardiovascular exam: PRESENT: RRR. ABSENT: diastolic murmur, rubs, systolic murmur GI/Abdominal exam: PRESENT: normal bowel sounds, soft. ABSENT: distended, guarding, mass, organolmegaly, rebound, tenderness Rectal exam: PRESENT: deferred Extremities exam: PRESENT: +2 edema Neurological exam: PRESENT: alert, awake, oriented to person, oriented to place, oriented to time, oriented to situation Psychiatric exam: PRESENT: appropriate affect Skin exam: PRESENT: dry, intact, warm Results Laboratory Results: 10/27/19 17:50 10/27/19 17:50 10/27/19 10/27/19 10/27/19 17:50 17:50 17:50 WBC 4.7 RBC 3.48 L Hgb 10.0 L Hct 29.4 L MCV 85 MCH 28.8 MCHC 34.1 RDW 15.2 H Plt Count 211 Seg Neutrophils % 62.6 VBG pH VBG pCO2 VBG HCO3 VBG Base Excess Sodium 138.0 Potassium 4.9 Chloride 99 Carbon Dioxide 31 H Anion Gap 8 BUN 16 Creatinine 0.60 Est GFR ( Amer) > 60 Glucose 104 Lactic Acid 1.3 Calcium 9.3 Total Bilirubin 0.4 AST 34 Alkaline Phosphatase 107 Total Protein 7.0 Albumin 4.2 Urine Color Urine Appearance Urine pH Ur Specific [place] Urine Protein Urine Glucose (UA) Urine Ketones Urine Blood Urine Nitrite Ur Leukocyte Esterase Urine WBC (Auto) Urine RBC (Auto) 10/27/19 10/27/19 17:50 18:13 WBC RBC Hgb Hct MCV MCH MCHC RDW Plt Count Seg Neutrophils % VBG pH 7.34 VBG pCO2 49.8 VBG HCO3 26.4 VBG Base Excess 0.2 Sodium Potassium Chloride Carbon Dioxide Anion Gap BUN Creatinine Est GFR ( Amer) Glucose Lactic Acid Calcium Total Bilirubin AST Alkaline Phosphatase Total Protein Albumin Urine Color YELLOW Urine Appearance CLEAR Urine pH 7.0 Ur Specific [place] 1.015 Urine Protein 30 H Urine Glucose (UA) NEGATIVE Urine Ketones NEGATIVE Urine Blood NEGATIVE Urine Nitrite NEGATIVE Ur Leukocyte Esterase NEGATIVE Urine WBC (Auto) 1 Urine RBC (Auto) 1 10/27/19 17:50 Troponin I 0.038 NT-Pro-B Natriuret Pep 4500 H Impressions: Chest X-Ray 10/27/19 17:07 IMPRESSION: DIFFUSE INTERSTITIAL PROMINENCE PROBABLY DUE TO CHRONIC INTERSTITIAL SCARRING. CANNOT EXCLUDE A COMPONENT OF INTERSTITIAL EDEMA. THERE ARE ALSO SMALL PLEURAL EFFUSIONS. Assessment and Plan - Diagnosis (1) New onset of congestive heart failure Is this a current diagnosis for this admission?: Yes Plan: Highly suspicious for new onset CHF given progressive dyspnea/orthopnea/BLE edema Echocardiogram Trend troponin IV Lasix twice daily If CHF confirmed start appropriate CHF medications prior to discharge Consider asking cardiology about catheterization needs given possibility of false negative nuclear stress test recently (2) HLD (hyperlipidemia) Qualifiers: Hyperlipidemia type: unspecified Qualified Code(s): E78.5 - Hyperlipidemia, unspecified Is this a current diagnosis for this admission?: Yes Plan: Patient previously taken off statin (3) History of TIA (transient ischemic attack) Is this a current diagnosis for this admission?: Yes Plan: Continue home 81 mg aspirin (4) Chronic pain Is this a current diagnosis for this admission?: Yes Plan: Continue home pain medications (5) Hypertension Is this a current diagnosis for this admission?: Yes Plan: Cardiac medications as above - Time Medications reviewed and adjusted accordingly: Yes Anticipated discharge: Home Within: within 48 hours
--- NOTE | 2019-10-27 22:42 | ADVANCED CARE ---
- Diagnosis (1) New onset of congestive heart failure Diagnosis Current: Yes (2) HLD (hyperlipidemia) Diagnosis Current: Yes (3) History of TIA (transient ischemic attack) Diagnosis Current: Yes (4) Chronic pain Diagnosis Current: Yes (5) Hypertension Diagnosis Current: Yes Attendance: Patient Resuscitation Status: Full Code Discussion: All aspects of CODE STATUS discussed including chest compressions, cardioversion, intubation and patient states she would like to be full code. Time Spent: 17 minutes
[2019-10-28 01:27] LABS: CREATINE KINASE MB 5.7 ng/mL (<4.55); TROPONIN I 0.048 ng/mL
[2019-10-28] MEDS: FUROSEMIDE INJ/PF 40 MG/4 ML SDV IV SCH ×3 (05:27→22:01)
[2019-10-28 07:09] LABS: ABSOLUTE EOSINOPHILS # (AUTO) 0.4 10^3/uL (0.0-0.6); ABSOLUTE MONOCYTES (AUTO) 0.7 10^3/uL (0.1-1.4); ABSOLUTE NEUT (AUTO) 3.7 10^3/uL (1.7-8.2); BASOPHILS % (AUTO) 0.7 % (0-2); EOSINOPHILS % (AUTO) 6.7 % (0-6); HEMATOCRIT 32.4 % (36.0-47.0); HEMOGLOBIN 10.6 g/dL (12.0-15.5); LYMPHOCYTES % (AUTO) 17.1 % (13-45); MEAN CORPUSCULAR HEMOGLOBIN 27.4 pg (27.0-33.4); MEAN CORPUSCULAR HGB CONC 32.8 g/dL (32.0-36.0); MEAN CORPUSCULAR VOLUME 84 fl (80-97); MONOCYTES % (AUTO) 11.8 % (3-13); PLATELET COUNT 227 10^3/uL (150-450); RED BLOOD COUNT 3.88 10^6/uL (3.72-5.28); RED CELL DISTRIBUTION WIDTH 15.4 % (11.5-14.0); SEGMENTED NEUTROPHILS % (AUTO) 63.7 % (42-78); TOTAL CELLS COUNTED % (AUTO) 100 %; WHITE BLOOD COUNT 5.8 10^3/uL (4.0-10.5)
[2019-10-28 07:15] LABS: ANION GAP 9 (5-19); BLOOD UREA NITROGEN 12 mg/dL (7-20); CALCIUM 9.1 mg/dL (8.4-10.2); CARBON DIOXIDE 33 mmol/L (22-30); CHLORIDE 97 mmol/L (98-107); CHOLESTEROL 180.79 mg/dL (0-200); CREATINE KINASE 175 U/L (30-135); GLUCOSE 92 mg/dL (75-110); TRIGLYCERIDES 86 mg/dL (<150)
[2019-10-28 07:25] LABS: DIRECT LDL 114 mg/dL (<100)
[2019-10-28 07:44] LABS: POTASSIUM 3.7 mmol/L (3.6-5.0)
[2019-10-28 07:46] LABS: CREATINE KINASE MB 5.2 ng/mL (<4.55); TROPONIN I 0.051 ng/mL
[2019-10-28] MEDS: CALCIUM CARBONATE 600 MG/VITAMIN D3 400 UNIT TABLET PO SCH (09:36)
[2019-10-28] MEDS: CYANOCOBALAMIN (VITAMIN B-12) 1,000 MCG TABLET PO SCH (09:36)
[2019-10-28] MEDS: PANTOPRAZOLE SODIUM 20 MG TABLET.DR PO SCH ×2 (09:38→17:12)
[2019-10-28] MEDS: LABETALOL HCL 200 MG TABLET PO SCH ×2 (09:38→17:11)
[2019-10-28] MEDS: ENOXAPARIN SODIUM INJ 40 MG/0.4 ML DISP.SYRIN SUBCUT SCH (09:39)
[2019-10-28] MEDS: CYCLOSPORINE 0.05% OPH EMULSIO 0.4 ML DROPERETTE OU SCH ×2 (09:39→17:12)
[2019-10-28 14:41] LABS: CREATINE KINASE MB 3.7 ng/mL (<4.55); TROPONIN I 0.034 ng/mL
--- NOTE | 2019-10-28 15:00 | XCELERA REPORT ---
[address] [address] Transthoracic Echocardiogram Report Name: MARK GOODE Age: 84 yrs Gender: Female : 1935 Patient Status: Inpatient Patient Location: [address] [place] [address] Study Date: 10/28/2019 09:43 AM Height: 59 in Weight: 124 lb BSA: 1.5 m2 Procedure: A complete two-dimensional transthoracic echocardiogram was performed (2D, M-mode, spectral and color flow Doppler). The study was technically adequate with some images being suboptimal in quality. Reason For Study: chf Ordering Physician: ROSANNA TOBAR Performed By: Yenny Shields Interpretation Summary The left ventricular ejection fraction is normal. There is mild concentric left ventricular hypertrophy. The left ventricle is grossly normal size. Doppler measurements suggest reversible restrictive left ventricular relaxation, which is associated with grade III/IV or moderate diastolic dysfunction Wall motion cannot be accurately commented on, but no definite regional wall motion abnormalities noted. The right ventricular systolic function is normal. The right ventricle appears to be hypertrophied The left atrium is moderately dilated. Borderline right atrial enlargement. There is a mild to moderate amount of mitral regurgitation There is no mitral valve stenosis. There is a moderate amount of aortic regurgitation There is no aortic valve stenosis There is a mild to moderate amount of tricuspid regurgitation There is moderate to severe pulmonary hypertension by echo Best estimated RVSP is approximately 65 mm/Hg. The inferior vena cava was not well visualized There is no pericardial effusion. MMode/2D Measurements & Calculations RVDd: 2.8 cm LVIDd: 4.6 cm FS: 48.9 % Ao root diam: 2.3 cm IVSd: 0.92 cm LVIDs: 2.4 cm EDV(Teich): 97.2 ml Ao root area: 4.1 cm2 LVPWd: 0.87 cm ESV(Teich): 19.2 ml LA dimension: 3.9 cm EF(Teich): 80.3 % Doppler Measurements & Calculations MV E max deyanira: MV P1/2t max deyanira: Ao V2 max: AI max deyanira: 119.9 cm/sec 120.9 cm/sec 196.3 cm/sec 489.5 cm/sec MV A max deyanira: MV P1/2t: 52.4 msec Ao max PG: AI max P.9 cm/sec MVA(P1/2t): 4.2 cm2 15.4 mmHg 95.8 mmHg MV E/A: 1.4 MV dec slope: AI dec slope: 348.2 cm/sec2 675.7 cm/sec2 AI P1/2t: MV dec time: 411.7 msec 0.16 sec LV V1 max PG: PA V2 max: PI end-d deyanira: TR max deyanira: 8.4 mmHg 87.9 cm/sec 145.2 cm/sec 403.1 cm/sec LV V1 max: PA max P.1 mmHg TR max P.1 cm/sec 65.0 mmHg AV P1/2t-pr_phl: MV P1/2t-pr_phl: 411.7 msec 52.4 msec Left Ventricle The left ventricle is grossly normal size. There is mild concentric left ventricular hypertrophy. The left ventricular ejection fraction is normal. Doppler measurements suggest reversible restrictive left ventricular relaxation, which is associated with grade III/IV or moderate diastolic dysfunction. Wall motion cannot be accurately commented on, but no definite regional wall motion abnormalities noted. Right Ventricle The right ventricle is grossly normal size. The right ventricle appears to be hypertrophied. The right ventricular systolic function is normal. Atria Borderline right atrial enlargement. The left atrium is moderately dilated. Interarterial septum not well visualized and not well dopplered. Cannot comment on ASD/PFO presence. Mitral Valve The mitral valve is grossly normal. There is no mitral valve stenosis. There is a mild to moderate amount of mitral regurgitation. Aortic Valve The aortic valve is sclerotic, but shows no functional abnormality. There is no aortic valve stenosis. There is a moderate amount of aortic regurgitation. Tricuspid Valve The tricuspid valve is not well visualized, but is grossly normal. There is no tricuspid stenosis. There is a mild to moderate amount of tricuspid regurgitation. There is moderate to severe pulmonary hypertension by echo. Best estimated RVSP is approximately 65 mm/Hg. Pulmonic Valve The pulmonic valve is not well visualized. Great Vessels The aortic root is not well visualized but is probably normal size. The inferior vena cava was not well visualized. Effusions There is no pericardial effusion. : ROSANNA TOBAR Shyamal
--- NOTE | 2019-10-28 15:35 | PDOC PROGRESS REPORT ---
Subjective Progress Note for:: 10/28/19 Subjective:: Patient was admitted overnight with difficulty breathing and shortness of breath. She is thought to have possible CHF. She denies any prior history of such. He thinks her breathing is better today. Chest x-ray shows diffuse interstitial prominence probably due to chronic interstitial scarring and a possible element of interstitial edema with small pleural effusion Reason For Visit: NEW ONSET OF CONGESTIVE HEART FAILURE Physical Exam Vital Signs: Temp Pulse Resp BP Pulse Ox 99.3 F 64 16 159/59 H 99 10/28/19 07:43 10/28/19 07:43 10/28/19 07:43 10/28/19 07:43 10/28/19 07:43 Intake & Output 10/27/19 10/28/19 10/29/19 06:59 06:59 06:59 Intake Total 240 Output Total 1120 2250 Balance -1119 Weight 53.4 kg General appearance: PRESENT: no acute distress, thin, other - elderly and frail Neck exam: PRESENT: full ROM. ABSENT: JVD, tenderness Respiratory exam: PRESENT: crackles, decreased breath sounds, rales, rhonchi, unlabored. ABSENT: tachypnea Cardiovascular exam: PRESENT: irregular rhythm, +S1, +S2 GI/Abdominal exam: PRESENT: normal bowel sounds, soft. ABSENT: tenderness Neurological exam: PRESENT: alert, awake, oriented to person, oriented to place, oriented to time, oriented to situation Psychiatric exam: PRESENT: appropriate affect Results Laboratory Results: 10/28/19 06:41 10/28/19 06:41 10/27/19 10/27/19 10/27/19 17:50 17:50 17:50 WBC 4.7 RBC 3.48 L Hgb 10.0 L Hct 29.4 L MCV 85 MCH 28.8 MCHC 34.1 RDW 15.2 H Plt Count 211 Seg Neutrophils % 62.6 VBG pH VBG pCO2 VBG HCO3 VBG Base Excess Sodium 138.0 Potassium 4.9 Chloride 99 Carbon Dioxide 31 H Anion Gap 8 BUN 16 Creatinine 0.60 Est GFR ( Amer) > 60 Glucose 104 Lactic Acid 1.3 Calcium 9.3 Phosphorus Magnesium Total Bilirubin 0.4 AST 34 Alkaline Phosphatase 107 Total Protein 7.0 Albumin 4.2 Triglycerides Cholesterol LDL Cholesterol Direct VLDL Cholesterol HDL Cholesterol Urine Color Urine Appearance Urine pH Ur Specific [place] Urine Protein Urine Glucose (UA) Urine Ketones Urine Blood Urine Nitrite Ur Leukocyte Esterase Urine WBC (Auto) Urine RBC (Auto) 10/27/19 10/27/19 10/28/19 17:50 18:13 06:41 WBC RBC Hgb Hct MCV MCH MCHC RDW Plt Count Seg Neutrophils % VBG pH 7.34 VBG pCO2 49.8 VBG HCO3 26.4 VBG Base Excess 0.2 Sodium 138.7 Potassium 3.7 D Chloride 97 L Carbon Dioxide 33 H Anion Gap 9 BUN 12 Creatinine 0.60 Est GFR ( Amer) > 60 Glucose 92 Lactic Acid Calcium 9.1 Phosphorus 4.0 Magnesium 1.9 Total Bilirubin AST Alkaline Phosphatase Total Protein Albumin Triglycerides 86 Cholesterol 180.79 LDL Cholesterol Direct 114 H VLDL Cholesterol 17.0 HDL Cholesterol 51 Urine Color YELLOW Urine Appearance CLEAR Urine pH 7.0 Ur Specific [place] 1.015 Urine Protein 30 H Urine Glucose (UA) NEGATIVE Urine Ketones NEGATIVE Urine Blood NEGATIVE Urine Nitrite NEGATIVE Ur Leukocyte Esterase NEGATIVE Urine WBC (Auto) 1 Urine RBC (Auto) 1 10/28/19 06:41 WBC 5.8 RBC 3.88 Hgb 10.6 L Hct 32.4 L MCV 84 MCH 27.4 MCHC 32.8 RDW 15.4 H Plt Count 227 Seg Neutrophils % 63.7 VBG pH VBG pCO2 VBG HCO3 VBG Base Excess Sodium Potassium Chloride Carbon Dioxide Anion Gap BUN Creatinine Est GFR ( Amer) Glucose Lactic Acid Calcium Phosphorus Magnesium Total Bilirubin AST Alkaline Phosphatase Total Protein Albumin Triglycerides Cholesterol LDL Cholesterol Direct VLDL Cholesterol HDL Cholesterol Urine Color Urine Appearance Urine pH Ur Specific [place] Urine Protein Urine Glucose (UA) Urine Ketones Urine Blood Urine Nitrite Ur Leukocyte Esterase Urine WBC (Auto) Urine RBC (Auto) 10/27/19 10/28/19 10/28/19 17:50 00:50 00:50 Creatine Kinase 202 H CK-MB (CK-2) 5.70 H Troponin I 0.038 0.048 NT-Pro-B Natriuret Pep 4500 H 10/28/19 10/28/19 10/28/19 06:41 06:41 13:29 Creatine Kinase 175 H 172 H CK-MB (CK-2) 5.20 H Troponin I 0.051 NT-Pro-B Natriuret Pep 10/28/19 13:29 Creatine Kinase CK-MB (CK-2) 3.70 Troponin I 0.034 NT-Pro-B Natriuret Pep Impressions: Chest X-Ray 10/27/19 17:07 IMPRESSION: DIFFUSE INTERSTITIAL PROMINENCE PROBABLY DUE TO CHRONIC INTERSTITIAL SCARRING. CANNOT EXCLUDE A COMPONENT OF INTERSTITIAL EDEMA. THERE ARE ALSO SMALL PLEURAL EFFUSIONS. Assessment and Plan - Diagnosis (1) Diastolic CHF Qualifiers: Heart failure chronicity: unspecified Qualified Code(s): I50.30 - U nspecified diastolic (congestive) heart failure Is this a current diagnosis for this admission?: Yes Plan: Echocardiogram shows left ventricle is grossly normal in size with a grade 3 of a 4 a moderate diastolic dysfunction. There is moderate to severe pulmonary hypertension by echo with RVSP approximately 65 mm per mercury Unclear if this is chronic however patient has acute decompensated diastolic CHF with preserved ejection fraction We will continue with Lasix, and adjust her other medications as appropriate. This point patient will be diuresed and will have her follow-up with her primary care physician for further evaluation and management (2) HLD (hyperlipidemia) Qualifiers: Hyperlipidemia type: unspecified Qualified Code(s): E78.5 - Hyperlipidemia, unspecified Is this a current diagnosis for this admission?: Yes Plan: Patient previously taken off statin, unsure why (3) Hypertension Is this a current diagnosis for this admission?: Yes Plan: Continue Cardiac medications - Time Time Spent with patient: 15-24 minutes Anticipated discharge: Home Within: within 72 hours
[2019-10-28] MEDS ORDERED: VENLAFAXINE HCL 75 MG CAP.SR.24H PO SCH (22:00)
[2019-10-29] MEDS ORDERED: FENTANYL 50 MCG/HR PATCH.TD72 TD SCH (10:00)
[2019-10-29] MEDS: CALCIUM CARBONATE 600 MG/VITAMIN D3 400 UNIT TABLET PO SCH (10:52)
[2019-10-29] MEDS: LABETALOL HCL 200 MG TABLET PO SCH ×2 (10:53→18:30)
[2019-10-29] MEDS: PANTOPRAZOLE SODIUM 20 MG TABLET.DR PO SCH ×2 (10:53→18:33)
[2019-10-29] MEDS: CYANOCOBALAMIN (VITAMIN B-12) 1,000 MCG TABLET PO SCH (10:54)
[2019-10-29] MEDS: FUROSEMIDE INJ/PF 40 MG/4 ML SDV IV SCH (10:55)
[2019-10-29] MEDS: CYCLOSPORINE 0.05% OPH EMULSIO 0.4 ML DROPERETTE OU SCH ×2 (10:57→18:32)
[2019-10-29] MEDS: ENOXAPARIN SODIUM INJ 40 MG/0.4 ML DISP.SYRIN SUBCUT SCH (10:58)
[2019-10-29 17:38] VITALS: BP 149/60
--- NOTE | 2019-11-09 08:26 | PDOC PROGRESS REPORT ---
Subjective Progress Note for:: 10/29/19 Subjective:: Patient was admitted overnight with difficulty breathing and shortness of breath. She is thought to have possible CHF. She denies any prior history of such. He thinks her breathing is better today. Chest x-ray shows diffuse interstitial prominence probably due to chronic interstitial scarring and a possible element of interstitial edema with small pleural effusion Reason For Visit: NEW ONSET OF CONGESTIVE HEART FAILURE Physical Exam Vital Signs: Temp Pulse Resp BP Pulse Ox 98.2 F 65 16 142/89 H 93 10/29/19 12:00 10/29/19 12:00 10/29/19 12:00 10/29/19 12:00 10/29/19 12:00 Intake & Output 10/28/19 10/29/19 10/30/19 06:59 06:59 07:59 Intake Total 1220 Output Total 1120 3750 Balance -1120 -2530 Weight 53.4 kg 50.4 kg General appearance: PRESENT: no acute distress Respiratory exam: PRESENT: crackles, unlabored Cardiovascular exam: PRESENT: RRR, +S1, +S2 Results Laboratory Results: 10/28/19 06:41 10/28/19 06:41 10/27/19 10/28/19 10/28/19 17:50 00:50 00:50 Creatine Kinase 202 H CK-MB (CK-2) 5.70 H Troponin I 0.038 0.048 NT-Pro-B Natriuret Pep 4500 H 10/28/19 10/28/19 10/28/19 06:41 06:41 13:29 Creatine Kinase 175 H 172 H CK-MB (CK-2) 5.20 H Troponin I 0.051 NT-Pro-B Natriuret Pep 10/28/19 13:29 Creatine Kinase CK-MB (CK-2) 3.70 Troponin I 0.034 NT-Pro-B Natriuret Pep Impressions: Chest X-Ray 10/27/19 17:07 IMPRESSION: DIFFUSE INTERSTITIAL PROMINENCE PROBABLY DUE TO CHRONIC INTERSTITIA L SCARRING. CANNOT EXCLUDE A COMPONENT OF INTERSTITIAL EDEMA. THERE ARE ALSO SMALL PLEURAL EFFUSIONS. Assessment and Plan - Diagnosis (1) Diastolic CHF Qualifiers: Heart failure chronicity: unspecified Qualified Code(s): I50.30 - Unspecified diastolic (congestive) heart failure Is this a current diagnosis for this admission?: Yes (2) HLD (hyperlipidemia) Qualifiers: Hyperlipidemia type: unspecified Qualified Code(s): E78.5 - Hyperlipidemia, unspecified Is this a current diagnosis for this admission?: Yes (3) Hypertension Is this a current diagnosis for this admission?: Yes - Plan Summary Summary: Please see discharge summary for full details
--- NOTE | 2019-11-09 08:26 | PDOC DISCHARGE SUMMARY ---
Impression - Admit/DC Date/PCP Admission Date/Primary Care Provider: 10/27/19 20:28 GELACIO SANCHEZ MD Discharge Date: 10/29/19 - Discharge Diagnosis (1) Diastolic CHF Is this a current diagnosis for this admission?: Yes (2) HLD (hyperlipidemia) Is this a current diagnosis for this admission?: Yes (3) Hypertension Is this a current diagnosis for this admission?: Yes - Additional Information Resuscitation Status: Full Code Discharge Diet: Cardiac Discharge Activity: Activity As Tolerated, Balance Activity w/Rest, Weigh Daily Referrals: GELACIO SANCHEZ MD [Primary Care Provider] - 11/03/19 2:15 pm (Follow up CXR for interstitial pneumonia and also medication management. PATIENT MADE OWN APPT.) Prescriptions: Furosemide [Lasix 20 mg Tablet] 20 mg PO QAM #30 tablet Home Medications: Acetaminophen [Pain Reliever] 500 mg PO DAILYP PRN 07/22/13 Calcium Carbonate/Vitamin D3 [Caltrate 600 Plus D3 Tablet] 1 tab PO DAILY 07/22/13 Fentanyl 50 mcg TD Q72HP PRN 07/22/13 Omeprazole 20 mg PO BID 07/22/13 Cyanocobalamin (Vitamin B-12) [Vitamin B12] 2,500 mcg PO DAILY 10/13/17 Venlafaxine HCl [Effexor Xr] 150 mg PO QHS 10/13/17 Lorazepam [Ativan 0.5 mg Tablet] 0.5 mg PO BIDP PRN 01/17/19 Cyclosporine 0.05% Oph Emulsio [Restasis 0.05% Oph Emulsion Pf 0.4 ml] 1 drop OU BID 10/27/19 Labetalol HCl 100 mg PO BID 10/27/19 Polyvinyl Alcohol [Liquitears 1.4% Ophth Soln 15 ml] 1 drop OP DAILYP PRN 10/27/19 Furosemide [Lasix 20 mg Tablet] 20 mg PO QAM #30 tablet 10/29/19 History of Present Illiness History of Present Illness: MARK GOODE is a 84 year old female Admitted with difficulty breathing and shortness of breath. She was thought to be CHF exacerbation. Please see admitting history and physical for full details. Hospital Course Hospital Course: Patient was admitted with difficulty breathing and shortness of breath. She was found to be in possible CHF and so was admitted for diuresis. Chest x-ray shows diffuse interstitial prominence probably due to chronic interstitial scarring as well as small pleural effusions. EKG shows sinus rhythm with atrial premature complexes and echocardiogram shows left ventricular ejection fraction that is normal with grade 3 moderate diastolic dysfunction, moderate amount of aortic regurgitation and severe pulmonary hypertension Patient was treated with Lasix IV. She did improved. Breathing improved however patient remained hypoxemic and she required oxygen so she has been sent home with home oxygen as well as Lasix. Blood pressure is also better controlled but will need further outpatient adjustment. As she has remained hemodynamically stable she has been discharged home for outpatient management and follow-up Physical Exam Vital Signs: Temp Pulse Resp BP Pulse Ox 98.4 F 60 18 145/56 H 96 10/29/19 08:00 10/29/19 08:00 10/29/19 08:00 10/29/19 08:00 10/29/19 10:15 Intake & Output 10/28/19 10/29/19 10/30/19 06:59 06:59 07:59 Intake Total 1220 Output Total 1120 3750 Balance -1120 -2530 Weight 53.4 kg 50.4 kg General appearance: PRESENT: no acute distress, other - elderly and frail Head exam: PRESENT: atraumatic Neck exam: PRESENT: full ROM. ABSENT: JVD, tenderness Respiratory exam: PRESENT: clear to auscultation pham, rhonchi, unlabored. ABSENT: tachypnea Cardiovascular exam: PRESENT: irregular rhythm, +S1, +S2, systolic murmur GI/Abdominal exam: PRESENT: soft. ABSENT: tenderness Rectal exam: PRESENT: deferred Musculoskeletal exam: PRESENT: ambulatory Neurological exam: PRESENT: alert, awake, oriented to person, oriented to place, oriented to time, oriented to situation Psychiatric exam: PRESENT: appropriate affect Results Laboratory Results: WBC 5.8 10^3/uL (4.0-10.5) 10/28/19 06:41 RBC 3.88 10^6/uL (3.72-5.28) 10/28/19 06:41 Hgb 10.6 g/dL (12.0-15.5) L 10/28/19 06:41 Hct 32.4 % (36.0-47.0) L 10/28/19 06:41 MCV 84 fl (80-97) 10/28/19 06:41 MCH 27.4 pg (27.0-33.4) 10/28/19 06:41 MCHC 32.8 g/dL (32.0-36.0) 10/28/19 06:41 RDW 15.4 % (11.5-14.0) H 10/28/19 06:41 Plt Count 227 10^3/uL (150-450) 10/28/19 06:41 Lymph % (Auto) 17.1 % (13-45) 10/28/19 06:41 [place] % (Auto) 11.8 % (3-13) 10/28/19 06:41 Eos % (Auto) 6.7 % (0-6) H 10/28/19 06:41 Baso % (Auto) 0.7 % (0-2) 10/28/19 06:41 Absolute Neuts (auto) 3.7 10^3/uL (1.7-8.2) 10/28/19 06:41 Absolute Lymphs (auto) 1.0 10^3/uL (0.5-4.7) 10/28/19 06:41 Absolute Monos (auto) 0.7 10^3/uL (0.1-1.4) 10/28/19 06:41 Absolute Eos (auto) 0.4 10^3/uL (0.0-0.6) 10/28/19 06:41 Absolute Basos (auto) 0.0 10^3/uL (0.0-0.2) 10/28/19 06:41 Seg Neutrophils % 63.7 % (42-78) 10/28/19 06:41 PT 13.2 SEC (11.4-15.4) 10/27/19 17:50 INR 1.00 10/27/19 17:50 APTT 28.1 SEC (23.5-35.8) 10/27/19 17:50 VBG pH 7.34 (7.30-7.42) 10/27/19 17:50 VBG pCO2 49.8 mmHg (35-63) 10/27/19 17:50 VBG HCO3 26.4 mmol/L (20-32) 10/27/19 17:50 VBG Base Excess 0.2 mmol/L 10/27/19 17:50 Sodium 138.7 mmol/L (137-145) 10/28/19 06:41 Potassium 3.7 mmol/L (3.6-5.0) D 10/28/19 06:41 Chloride 97 mmol/L (98-107) L 10/28/19 06:41 Carbon Dioxide 33 mmol/L (22-30) H 10/28/19 06:41 Anion Gap 9 (5-19) 10/28/19 06:41 BUN 12 mg/dL (7-20) 10/28/19 06:41 Creatinine 0.60 mg/dL (0.52-1.25) 10/28/19 06:41 Est GFR ( Amer) > 60 (>60) 10/28/19 06:41 Est GFR (MDRD) Non-Af > 60 (>60) 10/28/19 06:41 Glucose 92 mg/dL (75-110) 10/28/19 06:41 Lactic Acid 1.3 mmol/L (0.7-2.1) 10/27/19 17:50 Calcium 9.1 mg/dL (8.4-10.2) 10/28/19 06:41 Phosphorus 4.0 mg/dL (2.5-4.5) 10/28/19 06:41 Magnesium 1.9 mg/dL (1.6-2.3) 10/28/19 06:41 Total Bilirubin 0.4 mg/dL (0.2-1.3) 10/27/19 17:50 Direct Bilirubin 0.3 mg/dL (0.0-0.4) 10/27/19 17:50 Neonat Total Bilirubin Not Reportable 10/27/19 17:50 Neonat Direct Bilirubin Not Reportable 10/27/19 17:50 Neonat Indirect Bili Not Reportable 10/27/19 17:50 AST 34 U/L (14-36) 10/27/19 17:50 ALT 22 U/L (<35) 10/27/19 17:50 Alkaline Phosphatase 107 U/L (38-126) 10/27/19 17:50 Creatine Kinase 172 U/L (30-135) H 10/28/19 13:29 CK-MB (CK-2) 3.70 ng/mL (<4.55) 10/28/19 13:29 Troponin I 0.034 ng/mL 10/28/19 13:29 NT-Pro-B Natriuret Pep 4500 pg/mL (<450) H 10/27/19 17:50 Total Protein 7.0 g/dL (6.3-8.2) 10/27/19 17:50 Albumin 4.2 g/dL (3.5-5.0) 10/27/19 17:50 Triglycerides 86 mg/dL (<150) 10/28/19 06:41 Cholesterol 180.79 mg/dL (0-200) 10/28/19 06:41 LDL Cholesterol Direct 114 mg/dL (<100) H 10/28/19 06:41 VLDL Cholesterol 17.0 mg/dL (10-31) 10/28/19 06:41 HDL Cholesterol 51 mg/dL (>40) 10/28/19 06:41 Urine Color YELLOW 10/27/19 18:13 Urine Appearance CLEAR 10/27/19 18:13 Urine pH 7.0 (5.0-9.0) 10/27/19 18:13 Ur Specific [place] 1.015 10/27/19 18:13 Urine Protein 30 mg/dL (NEGATIVE) H 10/27/19 18:13 Urine Glucose (UA) NEGATIVE mg/dL (NEGATIVE) 10/27/19 18:13 Urine Ketones NEGATIVE mg/dL (NEGATIVE) 10/27/19 18:13 Urine Blood NEGATIVE (NEGATIVE) 10/27/19 18:13 Urine Nitrite NEGATIVE (NEGATIVE) 10/27/19 18:13 Urine Bilirubin NEGATIVE (NEGATIVE) 10/27/19 18:13 Urine Urobilinogen 2.0 mg/dL (<2.0) H 10/27/19 18:13 Ur Leukocyte Esterase NEGATIVE (NEGATIVE) 10/27/19 18:13 Urine WBC (Auto) 1 /HPF 10/27/19 18:13 Urine RBC (Auto) 1 /HPF 10/27/19 18:13 U Hyaline Cast (Auto) 1 /LPF 10/27/19 18:13 Squamous Epi Cells Auto 1 /HPF 10/27/19 18:13 Urine Mucus (Auto) RARE /LPF 10/27/19 18:13 Urine Ascorbic Acid NEGATIVE (NEGATIVE) 10/27/19 18:13 10/27/19 10/28/19 10/28/19 17:50 00:50 06:41 CK-MB (CK-2) 5.70 H 5.20 H Troponin I 0.038 0.048 0.051 NT-Pro-B Natriuret Pep 4500 H 10/28/19 13:29 CK-MB (CK-2) 3.70 Troponin I 0.034 NT-Pro-B Natriuret Pep Impressions: Chest X-Ray 10/27/19 17:07 IMPRESSION: DIFFUSE INTERSTITIAL PROMINENCE PROBABLY DUE TO CHRONIC INTERSTITIAL SCARRING. CANNOT EXCLUDE A COMPONENT OF INTERSTITIAL EDEMA. THERE ARE ALSO SMALL PLEURAL EFFUSIONS. Plan Health Concerns: Follow up of CHF, Diastolic CHF, interstitial Patient also hypoxic so she will be dc home on Oxygen Time Spent: Greater than 30 Minutes Stroke Is this a Stroke Patient?: No Acute Heart Failure - Is this a Heart Failure Patient?: Yes Documentation of LVEF assessment?: Yes LVEF < 40%?: No- if no continue to question #3 3. Anticoagulant therapy for permanect/persistent/paraoxysmal Afib or Aflutter: N/A Follow-up Appointment scheduled within 7 days?: Yes
== END 2019-10-29 19:30 | disposition home health service (06) ==
LOC: ER 16:57 → INTOOBSV 20:28 → EH 20:28 → 5 23:00
PROVIDERS: ADMIT Internal Medicine; ATTEND Internal Medicine
DX: I11.0 Hypertensive heart disease with heart failure (principal); I50.31 Acute diastolic (congestive) heart failure; E78.5 Hyperlipidemia, unspecified; M19.90 Unspecified osteoarthritis, unspecified site; K21.9 Gastro-esophageal reflux disease without esophagitis; I27.20 Pulmonary hypertension, unspecified; I35.1 Nonrheumatic aortic (valve) insufficiency; R09.02 Hypoxemia; G89.4 Chronic pain syndrome; M54.2 Cervicalgia; M79.601 Pain in right arm; Z86.73 Personal history of transient ischemic attack (TIA), and cerebral infarction without residual deficits; Z99.81 Dependence on supplemental oxygen; Z82.49 Family history of ischemic heart disease and other diseases of the circulatory system; Z88.7 Allergy status to serum and vaccine; Z60.2 Problems related to living alone; Z63.6 Dependent relative needing care at home
CPT/HCPCS: 93005; 99285; 96374; 36415 ×2; 87040; 82553; 82550; 83605; 83735; 84100; 85025 ×2; 85610; 85730; 80048; 80053; 81001; 84484 ×2; 82803; 80061; 83880; 93306; 71046; 93010; A9270 ×11; J1940 ×3; J1650; J3490